=== PATIENT | male | born 1945 | race Caucasian/White ===

== ENCOUNTER 2017-10-10 08:03 | Inpatient (IN) | payer OTHER ==
[2017-09-12 11:12] VITALS: Ht 180.3 cm; Wt 90.1 kg
--- NOTE | 2017-09-12 11:35 | PAT Medication Instructions ---
Service Date Sep 12, 2017. Current Home Medication List Celecoxib (Celebrex), Unknown Dose PO UD Nutritional Supplements (Boost), 1 DOSE PO q3-4 days Omeprazole (Prilosec), 20 MG PO DAILY PRN for PRN Oxycodone/Acetaminophen 10MG/325MG (Percocet 10MG/325MG), 1 TAB PO UD PRN for Pain Simvastatin (Zocor), 40 MG PO QPM Medication Instructions For Your Scheduled Surgery - Ask your surgeon for instructions for: Celecoxib (Celebrex), Unknown Dose PO UD - Hold the following medications the morning of surgery: Nutritional Supplements (Boost), 1 DOSE PO q3-4 days - Take the following medications the morning of surgery with a sip of water: Omeprazole (Prilosec), 20 MG PO DAILY PRN for PRN (if needed) Oxycodone/Acetaminophen 10MG/325MG (Percocet 10MG/325MG), 1 TAB PO UD PRN for Pain (if needed, can be taken up to four hours before surgery) - Take the following medications as scheduled the night before surgery: Omeprazole (Prilosec), 20 MG PO DAILY PRN for PRN (if needed) Oxycodone/Acetaminophen 10MG/325MG (Percocet 10MG/325MG), 1 TAB PO UD PRN for Pain (if needed) Simvastatin (Zocor), 40 MG PO QPM If you have any questions please call us at [phone] or [phone] or [phone]
--- NOTE | 2017-09-12 12:45 | DIAGNOSTIC IMAGING REPORT ---
CHEST 2 VIEWS ROUTINE CLINICAL HISTORY: Preoperative chest COMPARISON STUDY: December 22, 2012 FINDINGS: The cardiac and mediastinal contours are normal. There is no evidence of focal pulmonary consolidation. There is no evidence of failure. No pleural effusions are visualized.[ There are minor areas of atelectasis/scarring at both lung bases. Advanced arthritic changes are present within the shoulders. IMPRESSION: No active disease in the chest. Electronically signed by: Anatoliy Salgado M.D. 09/12/2017 12:44 PM Dictated Date/Time: 09/12/2017 12:43 PM
[2017-09-12 13:43] LABS: BASO % 0.3 %; BASO ABS # 0.02 K/uL (0-0.2); EOS % 0.9 %; EOS ABS # 0.06 K/uL (0-0.5); HEMATOCRIT 40.5 % (42-52); HEMOGLOBIN 13.6 g/dL (14.0-18.0); IG# 0.01 K/uL (0.00-0.02); LYMPH ABS # 1.31 K/uL (1.2-3.4); MEAN CELL VOLUME 85.8 fL (80-100); MEAN CORPUSCULAR HEMOGLOBIN 28.8 pg (25-34); MEAN CORPUSCULAR HGB CONC 33.6 g/dl (32-36); MEAN PLATELET VOLUME 10.7 fL (7.4-10.4); MONO % 6.4 %; MONO ABS # 0.42 K/uL (0.11-0.59); NEUT % 72.2 %; NEUT ABS # 4.72 K/uL (1.4-6.5); PLATELET COUNT 217 K/uL (130-400); RED CELL DISTRIBUTION WIDTH CV 15.6 % (11.5-14.5); RED CELL DISTRIBUTION WIDTH SD 49.8 fL (36.4-46.3); WHITE BLOOD COUNT 6.54 K/uL (4.8-10.8)
[2017-09-12 13:56] LABS: PTT PATIENT 27.9 SECONDS (21.0-31.0)
[2017-09-12 14:23] LABS: HEMOGLOBIN A1C 5.5 % (4.5-5.6)
[2017-09-12 14:39] LABS: ALBUMIN 3.6 gm/dl (3.4-5.0); CALCIUM 8.9 mg/dl (8.5-10.1); CREATININE 0.69 mg/dl (0.60-1.40); POTASSIUM 4.7 mmol/L (3.5-5.1)
--- NOTE | 2017-10-01 14:16 | HISTORY & PHYSICAL EXAMINATION ---
DATE OF ADMISSION: 10/10/2017 CHIEF COMPLAINT: Left hip pain. HISTORY OF PRESENT ILLNESS: Mr. Rosas is a 72-year-old male with left hip pain. The patient rates his pain at 10/10. He has pain with his daily activities. He has limited standing and walking tolerance. Pain is worse with weightbearing. The patient ambulates with a cane. He takes chronic oxycodone 10/325. He does a home exercise program with little relief. The patient has failed conservative treatment and is scheduled for a left total hip arthroplasty. PAST MEDICAL HISTORY: Hypercholesterolemia. Denies heart disease, diabetes or DVT. PAST SURGICAL HISTORY: Right knee replacement and right hip replacement. SOCIAL HISTORY: The patient denies alcohol or tobacco use. He lives in a single story home. He lives alone and is retired. FAMILY HISTORY: Negative for DVT. MEDICATIONS: Omeprazole 20 mg daily, simvastatin 40 mg daily, and doxycycline 100 mg two capsules daily. ALLERGIES: None. REVIEW OF SYSTEMS: See HPI. Ten other systems reviewed, all negative. PHYSICAL EXAMINATION: VITAL SIGNS: Height 5 feet 11 inches, weight 200 pounds, and BMI 28. GENERAL: This is a well-developed and well-nourished male who is alert and oriented x3. Mood and affect are appropriate. HEENT: Normocephalic and atraumatic. Mucous membranes are moist and intact. NECK: Supple without lymphadenopathy. HEART: Regular rate and rhythm without murmurs, rubs or gallops. LUNGS: Clear to auscultation without wheezes or rhonchi. ABDOMEN: Soft and nontender. Bowel sounds are equal and active. EXTREMITIES: No ecchymosis, redness or warmth. The patient has decreased range of motion and pain in the groin. He is neurovascularly intact. He has +1 distal edema. He walks with an antalgic gait. X-RAY EXAMINATION: AP and lateral views show joint space narrowing and osteophyte formation. IMPRESSION: Degenerative joint disease, left hip. PLAN: The patient will be admitted for a left total hip arthroplasty. We will plan on aspirin for DVT prophylaxis. The patient would like to do outpatient PT upon discharge. [facility]
[~2017-10-10] VITALS: Ht 180.3 cm; Wt 90.1 kg
[2017-10-10] VITALS (10 sets, daily range): BP systolic 106–150; BP diastolic 58–93; PULSE 73–106; TEMP 36.4–36.8; O2SAT 95–100
[2017-10-10] MEDS: TRANEXAMIC ACID INJ 1,000 MG x 2 Bags IV SCH ×4 (06:00→06:30)
[~2017-10-10 08:03] MED LIST: ACETAMINOPHEN 500 MG TAB PO SCH; BUPIVACAINE 0.5 % 5 MG/1 ML PF 10ML VIAL ONE; CEFAZOLIN 2000MG IV PUSH 15 ML IV SCH; CeleBREX 200 MG CAP PO SCH; DEXAMETHASONE 4 MG TAB PO SCH; FAMOTIDINE 20 MG TAB PO SCH; GABAPENTIN 300 MG CAP PO SCH; LACTATED RINGER'S 1000ML 1,000 ML IV SCH; LACTATED RINGER'S 1000ML 500 ML IV SCH; METOCLOPRAMIDE HCL 10 MG TAB PO SCH; NUTR-7 PO; OXYC-106 PO; PRLSR20 PO; ROPIVACAINE 5MG/ML 30 ML 150 MG, BUPIVACAINE 0.5% MPF INJ 30 ML, EpINEphrine HCL INJ 0.... INFIL SCH; SIMV40TA2 PO
[2017-10-10] MEDS ORDERED: MIDAZOLAM HCL 1 MG/ML 2ML VIAL ONE (08:56)
[2017-10-10] MEDS ORDERED: POVIDONE-IODINE OP SOLN 30 ML BTL ONE (09:44)
[2017-10-10] MEDS ORDERED: BACITRACIN 50000 UNIT VIAL ONE (09:44)
[2017-10-10] MEDS ORDERED: ORTHO JOINT ANESTHETIC ONE (09:44)
--- NOTE | 2017-10-10 09:52 | History & Physical Bridge Note ---
H&P Re-Evaluation Bridge Note: I have examined the patient, reviewed the History & Physical and in the interval since the performance of the History & Physical I have noted the following changes of clinical significance: No changes noted
[2017-10-10] MEDS ORDERED: LIDOCAINE HCL 2% 2 ML VIAL (20MG/ML) ONE (11:11)
[2017-10-10] MEDS ORDERED: PROPOFOL IV EMULSION 10 MG/ML 20 ML VIAL IV ONE (11:11)
[2017-10-10] MEDS ORDERED: PHENYLEPHRINE 100MCG/ML 5ML SYR ONE (11:42)
--- NOTE | 2017-10-10 11:42 | [facility] Post Operative Brief Note ---
Immediate Operative Summary Operative Date Oct 10, 2017. Pre-Operative Diagnosis Left hip degenerative joint disease Post-Operative Diagnosis Left hip degenerative joint disease Procedure(s) Performed Left total knee arthroplasty, uncemented Surgeon Dr. Batista Net Development Manager Surgeon(s) Jhonathan Gongora PA-C Estimated Blood Loss 100cc Findings Consistent with Post-Op Diagnosis Specimens A: Left femoral head Anesthesia Type MAC Spinal Regional Complication(s) none Disposition Accompanied Pt To Recover: no Disposition: Recovery Room / PACU
--- NOTE | 2017-10-10 11:58 | OPERATIVE REPORT ---
DATE OF OPERATION: 10/10/2017 PREOPERATIVE DIAGNOSIS: Osteoarthritis, left hip. POSTOPERATIVE DIAGNOSIS: Osteoarthritis, left hip. PROCEDURE: Left Nicho total hip arthroplasty. SURGEON: Dr. Batista. MELON PACKER: PAIGE Lopez ANESTHESIA: Spinal. COMPLICATIONS: None. OPERATION AND FINDINGS: PROCEDURE: Following induction of adequate spinal anesthesia, the patient was placed in right lateral decubitus position and left Jess-Langenbeck incision was made. Subcutaneous tissue was sharply dissected. Electrocautery used for hemostasis. The fascia was incised throughout the length of the wound and a new scissor placed beneath the short external rotators. The pyriformis was tagged with #1 Vicryl. The short external rotators were divided from the posterior aspect of the femur using electrocautery. These were swept posteriorly. A T-capsulotomy incision was made and the hip was dislocated using a combination of flexion, adduction, and internal rotation. Exposure of the femoral neck with old-style Hohmann and a blunt Hohmann was carried out and a femoral rasp was utilized as a guide for making the appropriate level femoral neck cut. This bone fragment was removed and reserved on the back table. Next, attention was turned to the acetabulum where bone hook was used to retract the femur while the offset retractors were placed anterior and posteriorly. A double-angled Hohmann was placed in superior and anterior position exposing the acetabulum nicely. Acetabular labrum as well as posterior capsule elements were removed using a long knife and a long pickup. Fovea centralis was cleared of all soft tissue. Sequential reamings were carried up to a 52 and decision was made to proceed with impaction of a 52 trabecular metal cup. This was impacted and held using a single 35 mm bone screw. The acetabular liner was placed with 15 of elevated posterior wall in the superior and posterior position. Next, attention was turned to the femoral portion of the case where a Bovie and pickup was used to further clear short external rotators from their insertion on the femur. Box osteotome was used to gain access to the femoral canal and the T-handled rasp and a rattail rasp were used to further open and lateral the canal. Sequentially raspings were carried up to a 7 which gave good fit and fill of the proximal femur. A trial reduction was carried out and a 132 degree femoral neck component was chosen as the size to be used. A +0 x 36 mm ceramic femoral head was impacted into position, +0 head was utilized. The trial reduction was stable in all degrees of rotation with no [id number] impingement. The hip was dislocated. The trial components were removed and the final femoral stem, neck, and femoral head combination were assembled on the back table and impacted into position. Hip was relocated. Range of motion checked once again successful and the wound was irrigated. The pyriformis repaired to the greater trochanter using #1 Vicryl [id number] suture. A Hemovac drain was placed and the fascia was closed using #1 Vicryl, subcutaneous tissue was closed using 0 Dexon, and skin was closed with edward. Sterile dressing of Adaptic, 4 x 4's, ABDs, and foam tape was applied. The patient tolerated the procedure well. Due to the complex nature of the procedure, the entire surgery was performed with the operational assistance of PAIGE Lopez. The oral surgery assistant, under direct supervision, was involved in the actual performance of all aspects of the surgical procedure including hemostasis, tissue retraction and incision, instrument management, patient positioning, and wound closure. DISPOSITION: Recovery room, stable. I attest to the content of the Intraoperative Record and any orders documented therein. Any exception s are noted below.
[2017-10-10] MEDS ORDERED: KETOROLAC TROMETHAMINE 30 MG/ML VIAL IV. PRN (12:15)
[2017-10-10] MEDS ORDERED: HYDROmorphone INJ 2 MG/ML SYR/VIAL IV PRN (12:15)
[2017-10-10] MEDS ORDERED: ATROPINE SULFATE 0.1 MG/ML 5ML SYR IV PRN (12:15)
[2017-10-10] MEDS ORDERED: EpHEDrine SULFATE INJ 50 MG/ML AMP IV PRN (12:15)
[2017-10-10] MEDS ORDERED: ONDANSETRON INJ 2 MG/ML 2 ML VIAL IV PRN ×2 (12:15→12:30)
[2017-10-10] MEDS ORDERED: PHENYLEPHRINE 100MCG/ML 5ML SYR IV PRN (12:15)
[2017-10-10] MEDS ORDERED: BISACODYL 10 MG SUPP PR PRN (12:30)
[2017-10-10] MEDS ORDERED: MAGNESIUM HYDROXIDE SUSP 30 ML UDC PO PRN (12:30)
[2017-10-10] MEDS ORDERED: ALUMINUM/MAGNESIUM/SIMETH (MAALOX MAX) 30 ML UDC PO PRN (12:30)
--- NOTE | 2017-10-10 13:08 | DIAGNOSTIC IMAGING REPORT ---
AP PELVIS, CROSSTABLE LATERAL LEFT HIP History: Left total hip arthroplasty. Degenerative arthritis. Postop. FINDINGS: The patient is status post a left total hip arthroplasty. The hardware is intact. No fracture or dislocation. Prior right total arthroplasty. Left-sided surgical drains are are in place. IMPRESSION: Left total hip arthroplasty. No evidence for hardware complication. Electronically signed by: Mookie Curry M.D. 10/10/2017 1:07 PM Dictated Date/Time: 10/10/2017 1:06 PM
--- NOTE | 2017-10-10 14:09 | Anesthesiology Progress Note ---
Anesthesia Post Op Note Date & Time Oct 10, 2017 at 14:08 Vital Signs Pain Intensity: 0 Vital Signs Past 12 Hours Date Time Temp Pulse Resp B/P (MAP) Pulse Ox O2 Delivery O2 Flow Rate FiO2 10/10/17 13:48 73 18 116/69 (85) 100 10/10/17 13:27 100 Nasal Cannula 3.0 10/10/17 13:16 99 Nasal Cannula 3.0 10/10/17 13:13 36.4 75 16 106/63 (77) 99 3.0 10/10/17 13:00 36.3 67 18 103/66 100 Nasal Cannula 3 10/10/17 12:50 77 18 106/67 100 Oxymask 3 10/10/17 12:40 70 16 94/64 100 Oxymask 3 10/10/17 12:30 78 16 97/60 100 Oxymask 3 10/10/17 12:20 71 16 99/58 100 Oxymask 5 10/10/17 12:10 36.2 79 16 107/66 98 Oxymask 5 10/10/17 09:18 36.5 86 20 146/93 98 Room Air Notes Mental Status: alert / awake / arousable, participated in evaluation Pt Amnestic to Procedure: Yes Nausea / Vomiting: adequately controlled Pain: adequately controlled Airway Patency, RR, SpO2: stable & adequate BP & HR: stable & adequate Hydration State: stable & adequate Anesthetic Complications: no major complications apparent
[2017-10-10] MEDS: D5W AND 1/2NSS + 20MEQ KCL 1,000 ML IV SCH (16:13)
[2017-10-10] MEDS: ACETAMINOPHEN 500 MG TAB PO SCH ×2 (16:13→23:30)
[2017-10-10] MEDS: MoRPHine SULFATE 2 MG/ML CARP IV PRN ×2 (19:00→23:30)
[2017-10-10] MEDS: CEFAZOLIN IV 2,000 MG in SYRINGE 0 ML IV SCH (19:00)
[2017-10-10] MEDS: FERROUS GLUCONATE 324 MG TAB PO SCH (19:00)
[2017-10-10] MEDS: DOCUSATE SODIUM 100 MG CAP PO SCH (21:03)
[2017-10-10] MEDS: CeleBREX 200 MG CAP PO SCH (21:03)
[2017-10-10] MEDS: OXYCODONE HCL IR 5 MG TAB (IMMEDIATE RELEASE) PO PRN (21:03)
[2017-10-10] MEDS: SIMVASTATIN 40 MG TAB PO SCH (21:04)
[2017-10-10] MEDS: SENNA 8.6 MG TAB PO SCH (21:04)
[2017-10-10] MEDS: ASPIRIN 81 MG ECTAB PO SCH (21:06)
[2017-10-11] VITALS (7 sets, daily range): BP systolic 96–134; BP diastolic 58–84; PULSE 82–92; TEMP 36.4–37.1; O2SAT 94–100
[2017-10-11] MEDS: D5W AND 1/2NSS + 20MEQ KCL 1,000 ML IV SCH ×2 (02:05→12:19)
[2017-10-11] MEDS: CEFAZOLIN IV 2,000 MG in SYRINGE 0 ML IV SCH (03:05)
[2017-10-11] MEDS: ACETAMINOPHEN 500 MG TAB PO SCH ×3 (05:42→20:44)
[2017-10-11 06:14] LABS: BASO % 0.1 %; BASO ABS # 0.01 K/uL (0-0.2); HEMATOCRIT 29.2 % (42-52); HEMOGLOBIN 9.7 g/dL (14.0-18.0); IG# 0.03 K/uL (0.00-0.02); LYMPH % 7.5 %; LYMPH ABS # 0.71 K/uL (1.2-3.4); MEAN CELL VOLUME 84.6 fL (80-100); MEAN CORPUSCULAR HEMOGLOBIN 28.1 pg (25-34); MEAN CORPUSCULAR HGB CONC 33.2 g/dl (32-36); MEAN PLATELET VOLUME 9.4 fL (7.4-10.4); MONO % 7.1 %; MONO ABS # 0.67 K/uL (0.11-0.59); NEUT ABS # 8.02 K/uL (1.4-6.5); PLATELET COUNT 173 K/uL (130-400); RED CELL DISTRIBUTION WIDTH CV 15.3 % (11.5-14.5); RED CELL DISTRIBUTION WIDTH SD 47.2 fL (36.4-46.3); WHITE BLOOD COUNT 9.44 K/uL (4.8-10.8)
[2017-10-11 06:53] LABS: CALCIUM 7.8 mg/dl (8.5-10.1); CREATININE 0.81 mg/dl (0.60-1.40); POTASSIUM 4.8 mmol/L (3.5-5.1)
[2017-10-11] MEDS: OXYCODONE HCL IR 5 MG TAB (IMMEDIATE RELEASE) PO PRN ×4 (07:22→23:46)
[2017-10-11] MEDS: MULTIVITAMIN TAB PO SCH (08:36)
[2017-10-11] MEDS: DOCUSATE SODIUM 100 MG CAP PO SCH ×2 (08:36→20:43)
[2017-10-11] MEDS: ASPIRIN 81 MG ECTAB PO SCH ×2 (08:36→20:43)
[2017-10-11] MEDS: FERROUS GLUCONATE 324 MG TAB PO SCH ×3 (08:36→17:54)
[2017-10-11] MEDS: CeleBREX 200 MG CAP PO SCH ×2 (08:37→20:43)
[2017-10-11] MEDS: PANTOprazole SOD 40 MG TAB PO SCH (08:37)
--- NOTE | 2017-10-11 08:40 | Orthopedic Progress Note ---
Orthopedic Progress Note Date of Service Oct 11, 2017. Subjective Post OP Day: 1 Reports: feeling well, Denies: complaints Objective calves soft nontender, N/V intact, hip located, dressing C/D/I, A&O x3, toes mobile, hemovac drainage (150ml) Date Time Temp Pulse Resp B/P (MAP) Pulse Ox O2 Delivery O2 Flow Rate FiO2 10/11/17 07:58 99 Room Air 10/11/17 07:54 36.4 82 20 134/84 (101) 99 Room Air 10/11/17 07:31 Room Air 10/11/17 03:12 36.6 83 16 105/64 (78) 95 Room Air 10/11/17 00:10 100 Room Air 3.0 10/10/17 23:00 36.8 87 18 106/58 (74) 95 Room Air 10/10/17 19:01 36.6 106 18 131/79 (96) 99 Room Air 10/10/17 16:32 36.5 90 18 150/82 (104) 96 Room Air 10/10/17 16:17 36.6 93 16 124/80 (95) 98 Room Air 10/10/17 15:43 36.6 87 18 120/69 (86) 98 Nasal Cannula 3.0 10/10/17 15:15 Room Air 10/10/17 14:15 92 18 133/87 (102) 100 10/10/17 13:48 73 18 116/69 (85) 100 10/10/17 13:27 100 Nasal Cannula 3.0 10/10/17 13:16 99 Nasal Cannula 3.0 10/10/17 13:13 36.4 75 16 106/63 (77) 99 3.0 10/10/17 13:00 36.3 67 18 103/66 100 Nasal Cannula 3 10/10/17 12:50 77 18 106/67 100 Oxymask 3 10/10/17 12:40 70 16 94/64 100 Oxymask 3 10/10/17 12:30 78 16 97/60 100 Oxymask 3 10/10/17 12:20 71 16 99/58 100 Oxymask 5 10/10/17 12:10 36.2 79 16 107/66 98 Oxymask 5 10/10/17 09:18 36.5 86 20 146/93 98 Room Air Laboratory Results 24 Hours: Test 10/11/17 05:38 White Blood Count 9.44 K/uL Red Blood Count 3.45 M/uL Hemoglobin 9.7 g/dL Hematocrit 29.2 % Mean Corpuscular Volume 84.6 fL Mean Corpuscular Hemoglobin 28.1 pg Mean Corpuscular Hemoglobin Concent 33.2 g/dl Platelet Count 173 K/uL Mean Platelet Volume 9.4 fL Neutrophils (%) (Auto) 85.0 % Lymphocytes (%) (Auto) 7.5 % Monocytes (%) (Auto) 7.1 % Eosinophils (%) (Auto) 0.0 % Basophils (%) (Auto) 0.1 % Neutrophils # (Auto) 8.02 K/uL Lymphocytes # (Auto) 0.71 K/uL Monocytes # (Auto) 0.67 K/uL Eosinophils # (Auto) 0.00 K/uL Basophils # (Auto) 0.01 K/uL Assessment & Plan Assessment: POD 1 s/p Left DUNIA Plan: PT/OT Planning for OPPT Inhouse Planning Pain Management: Celebrex, Ultram, Morphine, PO Tylenol, Oxy IR DVT Prophylaxis: TEDs, SCDs, ASA Discharge Planning Discharge Planning: home with oppt
--- NOTE | 2017-10-11 08:54 | Discharge Instructions ---
Discharge Instructions Date of Service Oct 11, 2017. Admission Reason for Admission: Left Hip Osteoarthritis Discharge Discharge Diagnosis / Problem: Left Hip Osteoarthritis Discharge Goals Goal(s): Decrease discomfort, Improve function Activity Recommendations Activity Limitations: per Instructions/Follow-up section Weightbearing Status: Left weightbearing (as tolerated) . Instructions / Follow-Up Instructions / Follow-Up ACTIVITY RECOMMENDATIONS: SELF CARE INSTRUCTIONS AFTER TOTAL HIP REPLACEMENT Until the incision and soft tissues around your hip have healed, there is a possibility that the hip prosthesis could dislocate. A. Observe the following precautions to prevent dislocation: 1. Don't bend your hip greater than 90 degrees. 2. Avoid crossing your legs or ankles while standing or lying. 3. Sit with your feet placed 6 inches apart. 4. When sitting, keep your knees below your hips. Sit on a firm surface, avoid deep, soft chairs and couches. Use an elevated toilet seat in the bathroom. 5. Don't bend over at the waist. Use a long handled shoehorn and a sock aid to help you put on your shoes and socks. A classroom teacher can help you fruit picker objects that are too high or too low to reach. 6. Keep car riding to a minimum for at least one month after surgery. B. Your balance may be shaky for a while. Use crutches or a walker until directed by your doctor. C. Use hand rails when walking on stairs. D. Wear low heeled shoes with non-slip soles. E. Be sure that your floors are free of things that could trip you - throw rugs , electrical cords, small objects. Avoid wet and waxed floors, especially with crutches and canes. F. Try to walk several times a day with rest periods between. G. Continue with all the exercises taught to you in the hospital. Again, make walking a part of your daily routine. SPECIAL CARE INSTRUCTIONS: VERY IMPORTANT TO READ AND REVIEW A. You may still be at risk for phlebitis and blood clots. 1. Wear surgical stockings (SWETA hose) for 2 weeks after surgery to improve circulation and reduce swelling. 2. Take Aspirin 81mg twice daily for 4 weeks or as directed by your doctor. This is your blood thinner. 3. High risk patients may be prescribed a stronger blood thinner if necessary. 4. If you are on Coumadin normally, your family doctor/ceo should monitor your blood work. Expect a phone call the day of or the day after bloodwork is drawn to adjust your dosage. B. You must take antibiotics before having dental work, bladder, bowel and other surgery. Your doctor will provide you with a permanent card to carry describing precautions. C. Call [facility] if you have a fever, redness or swelling around the incision, cloudy drainage from incision, or sudden increase in pain in your hip, not relieved by your regular pain medication. D. Please call the office at if you have any concerns or questions about your operation or recovery. * YOU MAY SHOWER, NO TUB BATHS UNTIL CLEARED BY YOUR DOCTOR. * WEAR SWETA HOSE 20 HOURS PER DAY FOR 2 WEEKS. * YOU SHOULD USE A WALKER OR CRUTCHES FOR 2-4 WEEKS. THIS WILL HELP PREVENT STRAIN ON YOUR HIP MUSCLE AND ALLOW IT TO HEAL PROPERLY. YOU MAY WEAN TO A CANE TOLERATED. * MOST PATIENTS WILL HAVE HOME NURSING FOR THERAPY. IF YOU DECIDE TO DO OUTPATIENT PHYSICAL THERAPY, PLEASE SCHEDULE THIS 3 TIMES PER WEEK. * Zip Skin Closure You have a Zipline Closure System. As noted below, this keeps your incision closed. Change the dressing daily. Keep the wound covered with a dressing as it has the potential to snag on your clothing. The Zipline will remain on for a total of 2 weeks. Do not remove it! You can shower with this on. No shower pressure on the wound. Do not soak it. No tub baths, swimming pools, or hot tubs until cleared by your Doctor. You will be given instructions by nursing staff at the time of discharge to care for your Zip Closure System. This devices uses plastic straps to keep your incision closed and protected throughout your recovery. If you have any questions please refer to these instructions first. [phone]. FOLLOW UP VISIT: If appointment is not already scheduled: Please call [facility] to make a follow-up appointment for 2 weeks after your surgery at . Current Hospital Diet Patient's current hospital diet: Regular Diet Discharge Diet Recommended Diet: Regular Diet Procedures Procedures Performed: Left total knee arthroplasty, uncemented Pending Studies Studies pending at discharge: no Laboratory Results Hemoglobin A1c Test 09/12/17 11:50 Range/Units Estimated Average Glucose 111 mg/dl Hemoglobin A1c 5.5 4.5-5.6 % Medical Emergencies . Who to Call and When: Medical Emergencies: If at any time you feel your situation is an emergency, please call 911 immediately. . Non-Emergent Contact Non-Emergency issues call your: Surgeon Call Non-Emergent contact if: temperature is above 101.5, your pain is not controlled, your pain is worsening, wound has increased drainage, wound has increased redness . "Provider Documentation" section prepared by Jhonathan Gongora. . [place] Drug Monitoring Program Search Results: patient reviewed within database, see additional documentation Drug Monitoring Findings: Pt receiving narcotics from Dr Irwin Arnold in [facility] on a semi regular basis. Last rx filled 08/30/17 for Percocet for 25 days. Pt will need to resume contract with this doctor after post operative period is over
[2017-10-11] MEDS: TRAMADOL HCL 50 MG TAB PO PRN ×3 (09:27→19:17)
--- NOTE | 2017-10-11 10:32 | Clinical Documentation Query ---
CLINICAL DOCUMENTATION QUERY Dr. PERALTA, In your clinical opinion is this patient being managed for: ( ) Acute blood loss anemia ( ) Not Agree ( ) Other explanation of clinical findings (Please Explain) ( ) Unable to determine (Please Define) ( ) Need to Discuss The medical record reflects the following clinical findings, treatment, and risk factors. Clinical Indicators: 72 yo male presenting with L hip DJD for L DUNIA. EBL 100 cc with additional hemovac drainage of 270 cc thus far Treatment: IV fluids, monitor CBC Risk Factors: expected surgical blood loss Please clarify and document your clinical opinion in the progress notes and discharge summary. Terms such as "probable", "suspected", "likely", "questionable", "possible", or "still to be ruled out" are acceptable. IF IN AGREEMENT, YOU MUST DOCUMENT ABOVE DIAGNOSTIC STATEMENT IN DAILY PROGRESS NOTES AND DISCHARGE SUMMARY. This document is not part of the patient's record. Thank You, Letty Willis RN [phone]
[2017-10-11] MEDS: SENNA 8.6 MG TAB PO SCH (20:43)
[2017-10-11] MEDS: SIMVASTATIN 40 MG TAB PO SCH (20:44)
[2017-10-12] MEDS: ACETAMINOPHEN 500 MG TAB PO SCH ×2 (05:33→13:36)
[2017-10-12] MEDS: OXYCODONE HCL IR 5 MG TAB (IMMEDIATE RELEASE) PO PRN ×2 (05:35→12:38)
[2017-10-12 07:30] VITALS: BP 106/62; PULSE 74; TEMP 36.4; O2SAT 98
[2017-10-12] MEDS: ASPIRIN 81 MG ECTAB PO SCH (08:32)
[2017-10-12] MEDS: DOCUSATE SODIUM 100 MG CAP PO SCH (08:33)
[2017-10-12] MEDS: PANTOprazole SOD 40 MG TAB PO SCH (08:33)
[2017-10-12] MEDS: CeleBREX 200 MG CAP PO SCH (08:33)
[2017-10-12] MEDS: FERROUS GLUCONATE 324 MG TAB PO SCH ×2 (08:33→12:37)
[2017-10-12] MEDS: MULTIVITAMIN TAB PO SCH (08:33)
--- NOTE | 2017-10-12 08:37 | Orthopedic Progress Note ---
Orthopedic Progress Note Date of Service Oct 12, 2017. Subjective Post OP Day: 2 Reports: feeling well, Denies: chest pain, SOB, nausea / vomiting, light headedness, calf pain Objective calves soft nontender, N/V intact, hip located, capillary refill less than 2 sec., dressing C/D/I (ZIPLINE), A&O x3, toes mobile Date Time Temp Pulse Resp B/P (MAP) Pulse Ox O2 Delivery O2 Flow Rate FiO2 10/12/17 07:30 36.4 74 19 106/62 (77) 98 Room Air 10/12/17 07:30 Room Air 10/11/17 23:31 37.1 87 16 96/58 (71) 94 Room Air 10/11/17 19:21 Room Air 10/11/17 16:40 Room Air 10/11/17 15:05 36.7 92 16 120/67 (84) 97 Room Air 10/11/17 12:14 36.5 88 18 120/76 (91) 98 Room Air Assessment & Plan Assessment: POD 2 s/p Left DUNIA Plan: PT/OT Planning for OPPT- DC HOME TODAY PAIN MANAGEMENT- ANDRIY, CELEBREX, TYLENOL DVT PROPH- ASA 81MG BID Inhouse Planning Pain Management: Celebrex, Ultram, Morphine, PO Tylenol, Oxy IR DVT Prophylaxis: TEDs, SCDs, ASA Discharge Planning Discharge Planning: home with oppt
[2017-10-12] MEDS ORDERED: ONDA-170 PO (08:39)
[2017-10-12] MEDS ORDERED: RXC5 PO (08:39)
[2017-10-12] MEDS ORDERED: SENN-61 PO (08:39)
[2017-10-12] MEDS ORDERED: ASPEC81 PO (08:39)
[2017-10-12] MEDS ORDERED: CLB200 PO (08:39)
[2017-10-12] MEDS ORDERED: ACET-24 PO (08:39)
[2017-10-12 10:18] VITALS: BP 106/62; PULSE 74; TEMP 36.4; O2SAT 98
== END 2017-10-12 13:45 | disposition home or self-care (01) | DRG 470 ==
LOC: C.ACU 08:03 → C.3E 09:46 → ENRESERV 12:41
PROC: 0SRB0JA Replacement of Left Hip Joint with Synthetic Substitute, Uncemented, Open Approach (ICD-10-PCS; principal; 2017-10-10 10:45)
DX: M16.12 Unilateral primary osteoarthritis, left hip (principal); E78.00 Pure hypercholesterolemia, unspecified; K21.9 Gastro-esophageal reflux disease without esophagitis; Z79.899 Other long term (current) drug therapy; Z79.891 Long term (current) use of opiate analgesic; Z96.641 Presence of right artificial hip joint; Z96.651 Presence of right artificial knee joint

== ENCOUNTER 2020-04-19 12:44 | Inpatient (IN) ==
[2020-04-19] MEDS ORDERED: ALUMINUM/MAGNESIUM SUSP 30 ML UDC PO PRN (14:17)
[2020-04-19] MEDS ORDERED: METOCLOPRAMIDE HCL INJ 5 MG/ML 2 ML VIAL IV PRN (14:17)
[2020-04-19] MEDS ORDERED: ZOLPIDEM TARTRATE 5 MG TAB PO PRN (14:17)
[2020-04-19] MEDS ORDERED: ONDANSETRON INJ 2 MG/ML 2 ML VIAL IV PRN (14:17)
[2020-04-19] MEDS ORDERED: MAGNESIUM HYDROXIDE SUSP 30 ML UDC PO PRN (14:17)
--- NOTE | 2020-04-19 15:25 | History and Physical Report ---
DATE OF ADMISSION: 04/19/2020 CHIEF COMPLAINT: Draining right hip wound. HISTORY OF PRESENT ILLNESS: The patient is a 74-year-old gentleman presented to the office on 04/19/2020 for evaluation of a draining right lateral hip wound. He is status post previous right total hip arthroplasty by Dr. Batista approximately 5 years ago. He states he has had drainage from this hip now for several months and finally presents for evaluation. On exam, he had gross purulence from the lateral hip. He has x-ray changes consistent with osteolysis about the femoral stem concerning for deep infection. The patient has been admitted to the hospital for surgical excisional arthroplasty, implantation of antibiotic spacer, IV antibiotics, and eventually likely the need for surgical reimplantation. PAST MEDICAL HISTORY: Hypertension, hyperlipidemia, aortic insufficiency. PAST SURGICAL HISTORY: Right hip replacement, left hip replacement, right knee replacement, cataract surgery. MEDICATIONS: None. ALLERGIES: No known drug allergies. SOCIAL HISTORY: He lives alone by himself. Otherwise, noncontributory. PHYSICAL EXAMINATION: GENERAL: Well-nourished, well-developed elderly male who appears his stated age. HEENT: Normocephalic, atraumatic, extraocular movements intact. Oropharynx pink and moist. NECK: Supple without adenopathy. LUNGS: Clear to auscultation bilaterally. HEART: Regular rate and rhythm. ABDOMEN: Soft, nontender, nondistended. EXTREMITIES: The upper extremities are within normal limits. The right lateral hip incision demonstrates evidence of two sinus tracts. He had a dressing in place today which was saturated with gross purulence. His hip is minimally irritable to passive range of motion. X-RAYS: X-rays of the hip were reviewed and is concerning for osteolysis about the proximal femoral stem. 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 PLAN: Above discussed with the patient. We are going to admit him to the hospital. We will get a preoperative medical clearance. Plan for surgical excisional arthroplasty with implantation of antibiotic spacer, 6 weeks or more of IV antibiotics and eventually the patient will return to the OR for reimplantation as indicated.
--- OUTSIDE RECORDS SUMMARY | 2020-04-19 18:05 | External Medical Summary | Continuity of Care Document ---
:[address], Provider Address Unavailable Unavailable , Care Team Providers Name Role Phone Shawanda Boyle [email or web address] PCP, UNKNOWN Unavailable Unavailable Problems Active medical history not documented Allergies and Adverse Reactions Allergy history not documented Medications Medications not documented Procedures Procedures not documented Immunizations Immunizations not documented Plan of Treatment Planned Observations Planned Goals not documented Results No Known Results Results not documented
[2020-04-19] MEDS: SODIUM CHLORIDE 0.9% 1000ML 1,000 ML IV SCH (19:06)
[2020-04-19 19:21] LABS: Basophils # (auto) 0.01 K/uL (0-0.2); Basophils % (auto) 0.2 %; Eosinophils # (auto) 0.08 K/uL (0-0.5); Eosinophils % (auto) 1.4 %; Hematocrit (blood only) 41.5 % (42-52); Hemoglobin 13.4 g/dL (14.0-18.0); Immature Granulocytes # (auto) 0.01 K/uL (0.00-0.02); Immature Granulocytes % (auto) 0.2 %; Lymphocytes # (auto) 1.16 K/uL (1.2-3.4); Lymphocytes % (auto) 20.1 %; Mean Corpuscular Hemoglobin 27.5 pg (25-34); Mean Corpuscular Hgb Conc 32.3 g/dL (32-36); Mean Platelet Volume 9.9 fL (7.4-10.4); Monocytes # (auto) 0.34 K/uL (0.11-0.59); Monocytes % (auto) 5.9 %; Neutrophils # (auto) 4.17 K/uL (1.4-6.5); Neutrophils % (auto) 72.2 %; Platelet Count 236 K/uL (130-400); RDW Coefficient of Variation 15.8 % (11.5-14.5); Red Blood Count 4.88 M/uL (4.7-6.1); White Blood Count 5.77 K/uL (4.8-10.8)
[2020-04-19] MEDS: OXYCODONE HCL IR 5 MG TAB (IMMEDIATE RELEASE) PO SCH (19:31)
[2020-04-19 19:33] LABS: Partial Thromboplastin Ratio 1.1; Partial Thromboplastin Time 30.1 Seconds (21.0-31.0); Prothrombin Time 10.7 Seconds (9.0-12.0)
--- NOTE | 2020-04-19 19:38 | XRay Report ---
TWO VIEW CHEST CLINICAL HISTORY: Preoperative examination. FINDINGS: PA and lateral chest radiographs are compared to study dated 09/12/2017. The cardiomediastin al silhouette is unremarkable noting atherosclerotic calcification of the thoracic aorta. There is ch ronic elevation of the right hemidiaphragm with bibasilar scarring/atelectasis. Chronic interstitial thickening is similar to previous. No airspace consolidation or pleural effusion is identified. There is no pneumothorax. The skeletal structures are osteopenic. The bony thorax appears intact. Advanced arthritic change and deformity is present in both shoulders. Degenerative change is also seen in the thoracic spine. IMPRESSION: Chronic parenchymal changes as above with no active disease in the chest. ACT 112: Negative or not required by law. Electronically signed by: Dandy Morales M.D. 04/19/2020 7:36 PM
[2020-04-19 19:41] LABS: BUN Creatinine Ratio 12.5 (10-20); C Reactive Protein 3.14 mg/dl (0-0.29); Calcium 9.4 mg/dl (8.5-10.1); Est GFR (African American) 106.9; Est GFR (Non-African American) 92.2; Potassium 3.9 mmol/L (3.5-5.1)
[2020-04-19 20:01] LABS: Appearance Urine Clear (Clear); Bilirubin Urine Negative (Negative); Blood Urine Negative (Negative); Color Urine Yellow; Glucose Urine UA Negative (Negative); Ketones Urine Negative (Negative); Leukocyte Esterase Urine Negative (Negative); Nitrite Urine Negative (Negative); Protein Urine Negative (Negative); Urobilinogen Urine Negative (Negative)
[2020-04-19] MEDS: DOCUSATE SODIUM 100 MG CAP PO SCH (21:09)
[2020-04-19] MEDS ORDERED: HydrALAZINE HCL 20 MG/ML VIAL IV PRN (21:55)
--- NOTE | 2020-04-19 21:55 | Hospitalist Consultation ---
Date of Consultation April 19, 2020 Assessment & Plan (1) Infection of right prosthetic hip joint: Defer antibiotics post surgical wound collection. Blood cultures. He is medically stable for surgery at this time. Revised cardiac risk index 0. 3.9% 30-day risk of , MS, or cardiac arrest. (2) LBBB (left bundle branch block): Similar to prior EKG. No further workup required for this. (3) Hyperlipidemia: Notable history of this. Follw up with PCP after discharge. (4) DVT prophylaxis: SCDs. Chemical prophylaxis deferred to primary orthopedic team. History of Present Illness Reason for Consultation: Infected right hip prosthesis Attending Physician: Rene Arias DO History of Present Illness Ghulam Rosas is a 74 year old male who presents as a direct admission under Dr Arias for right hip prosthesis infection. Initial surgery was performed [address] Batista. In addition he has a right TKA performed by Dr Fofana with subsequent revision surgery prior to this. He has not had a PCP for the last 2 years as he has been unhappy about the outcomes of his surgeries and does not take any medications at the present time Denies any chest pain or shortness of breath on exertion. Able to walk up a flight of stairs with stopping or symptoms. Allergies Allergy/AdvReac Type Severity Reaction Status Date / Time No Known Allergies Allergy Unverified 09/12/17 11:08 Home Medications Home Medications Medication Instructions Recorded Confirmed Type Simvastatin (Zocor) 40 mg PO QPM #0 tab 01/07/13 History Patient History Medical History Hyperlipidemia Surgical History History of cataract surgery History of total hip replacement History of total knee replacement Social History Smoking Status: Never smoker Hx Alcohol Use: No Hx Substance Use: No Communication Ability: Effective Beliefs That Will Affect Care: None Current Living Situation: Alone Other Information That Helps Us Care for You: No Feels Safe at Home: Yes Safety Concerns: Feels Safe At This Time Assistive Devices: None Review of Systems Review of Systems: All systems reviewed & are unremarkable except as noted in HPI & below Physical Exam Constitutional: WD/WN, vitals as above Eyes: + anicteric sclerae; normal pupil size ENMT: external ear and nose normal, oropharynx normal Neck: trachea midline, no thyromegaly Respiratory: normal respiratory effort, lungs clear to auscultation Cardiovascular: Rate/Rhythm: regular rate and regular rhythm Heart Sounds: no murmur Extremities: normal capillary refill and + pedal edema (trace b/l ankles); no calf tenderness Gastrointestinal (Abdomen): normal bowel sounds, soft, nontender, no hepatosplenomegaly Skin: Right hip swelling. Drainage from lateral right hip incision without significant surrounding cellulitis. Neurologic: moves all extremities and awake; not confused NV intact distal to right hip Psychiatric: A+Ox3, euthymic affect Results & Data Results & Data ([facility]) Vital Signs (Past 12 Hours) Vital Signs Temp Pulse Resp BP Pulse Ox 04/19/20 18:38 96 H 20 174/99 H 95 04/19/20 18:32 36.8 C 96 H 20 174/99 H 95 Diagnostic Findings TWO VIEW CHEST IMPRESSION: Chronic parenchymal changes as above with no active disease in the chest. ECG Indication: other (Pre-op) Rate (beats per minute): 85 Rhythm: normal sinus Findings: + LBBB and + PVC Comparison ECG Date: from (12 September 2017) Change: no significant change (PVC present) PG Care Time/CCT Total # of Minutes Spent Total Time Spent with Patient: Total time spent is greater than 50% in coordination of care (as documented) at patient's floor/unit and/or counseling patient: Coding Level of Care Code 27640 Inpt Consult Level 3 Diagnoses Infection of right prosthetic hip joint T84.51XA LBBB (left bundle branch block) I44.7 Hyperlipidemia E78.5 DVT prophylaxis Z29.9
[2020-04-20] MEDS: OXYCODONE HCL IR 5 MG TAB (IMMEDIATE RELEASE) PO SCH ×4 (00:05→17:22)
[2020-04-20] MEDS: SODIUM CHLORIDE 0.9% 1000ML 1,000 ML IV SCH ×2 (05:37→17:22)
--- NOTE | 2020-04-20 09:44 | Orthopedic Progress Note ---
Date of Service April 20, 2020 Assessment & Plan (1) Infection of right prosthetic hip joint: Periprosthetic hip infection with unclear etiology. Principal surgery performed in January [address] Batista. The patient's postoperative period was uncomplicated. The patient denies any recent illnesses or infections. Denies any pain or fevers. Admits to draining of the right hip x2 months, was seen 1 day previously in the office by UDAVIS GIBSON and admitted for further treatment of his right hip periprosthetic joint infection. -Due to implant and OR availability, planning on OR on 04/21/2020. -N.p.o. after midnight -Hold anticoagulation -Medical consultation for clearance and perioperative comanagement -Hold IV antibiotics for intraoperative cultures Admission and Anticipated Discharge Date Admission Date: April 19, 2020 Subjective Patient seen sitting up in bed, comfortable, no acute issues, denies fevers, chills, nausea, vomiting, shortness of breath or chest pain. Review of Systems Review of Systems: All systems reviewed & are unremarkable except as noted in HPI & below Constitutional: as per Subjective / HPI Physical Exam Physical Exam: RLE NVSI +EHL/FHL/TA/GS SILT grossly, +2 DP pulse, compartments soft NT, Patient reports right posterior lateral incision with 2 draining sinus tracts middle one third incision distal one third incision. Purulent drainage. Mild erythema and edema. Constitutional: WD/WN, vitals as above Results & Data ([place]) Vital Signs (Past 12 Hours) Vital Signs Temp Pulse Resp BP Pulse Ox 04/19/20 23:04 37.0 C 85 16 137/85 95 Laboratory Results 04/19/20 04/19/20 04/19/20 Range/Units 19:55 18:50 18:50 WBC 5.77 (4.8-10.8) K/uL RBC 4.88 (4.7-6.1) M/uL Hgb 13.4 L (14.0-18.0) g/dL Hct 41.5 L (42-52) % MCV 85.0 (80-100) fL MCH 27.5 (25-34) pg MCHC 32.3 (32-36) g/dL RDW Std Deviation 49.0 H (36.4-46.3) fL RDW Coeff of Lori 15.8 H (11.5-14.5) % Plt Count 236 (130-400) K/uL MPV 9.9 (7.4-10.4) fL Immature Gran % (Auto) 0.2 % Neut % (Auto) 72.2 % Lymph % (Auto) 20.1 % Garrett % (Auto) 5.9 % Eos % (Auto) 1.4 % Baso % (Auto) 0.2 % Neut # (Auto) 4.17 (1.4-6.5) K/uL Lymph # (Auto) 1.16 L (1.2-3.4) K/uL Garrett # (Auto) 0.34 (0.11-0.59) K/uL Eos # (Auto) 0.08 (0-0.5) K/uL Baso # (Auto) 0.01 (0-0.2) K/uL Immature Gran # (Auto) 0.01 (0.00-0.02) K/uL ESR 62 H (0-14) mm/hr PT (9.0-12.0) Seconds INR (0.9-1.1) APTT (21.0-31.0) Seconds PTT Ratio Sodium (136-145) mmol/L Potassium (3.5-5.1) mmol/L Chloride (98-107) mmol/L Carbon Dioxide (21-32) mmol/L Anion Gap (3-11) BUN (7-18) mg/dl Creatinine (0.6-1.4) mg/dl Est Cr Clr Drug Dosing ml/min Est GFR ( Amer) Est GFR (Non-Af Amer) BUN/Creatinine Ratio (10-20) Glucose (70-99) mg/dl Calcium (8.5-10.1) mg/dl C-Reactive Protein (0-0.29) mg/dl Urine Color Yellow Urine Appearance Clear (Clear) Urine pH 7.0 (4.5-7.5) Ur Specific [place] 1.010 (1.000-1.030) Urine Protein Negative (Negative) Urine Glucose (UA) Negative (Negative) Urine Ketones Negative (Negative) Urine Blood Negative (Negative) Urine Nitrite Negative (Negative) Urine Bilirubin Negative (Negative) Urine Urobilinogen Negative (Negative) Ur Leukocyte Esterase Negative (Negative) 04/19/20 04/19/20 Range/Units 18:49 18:49 WBC (4.8-10.8) K/uL RBC (4.7-6.1) M/uL Hgb (14.0-18.0) g/dL Hct (42-52) % MCV (80-100) fL MCH (25-34) pg MCHC (32-36) g/dL RDW Std Deviation (36.4-46.3) fL RDW Coeff of Lori (11.5-14.5) % Plt Count (130-400) K/uL MPV (7.4-10.4) fL Immature Gran % (Auto) % Neut % (Auto) % Lymph % (Auto) % Garrett % (Auto) % Eos % (Auto) % Baso % (Auto) % Neut # (Auto) (1.4-6.5) K/uL Lymph # (Auto) (1.2-3.4) K/uL Garrett # (Auto) (0.11-0.59) K/uL Eos # (Auto) (0-0.5) K/uL Baso # (Auto) (0-0.2) K/uL Immature Gran # (Auto) (0.00-0.02) K/uL ESR (0-14) mm/hr PT 10.7 (9.0-12.0) Seconds INR 1.0 (0.9-1.1) APTT 30.1 (21.0-31.0) Seconds PTT Ratio 1.1 Sodium 136 (136-145) mmol/L Potassium 3.9 (3.5-5.1) mmol/L Chloride 104 (98-107) mmol/L Carbon Dioxide 25 (21-32) mmol/L Anion Gap 8.0 (3-11) BUN 9 (7-18) mg/dl Creatinine 0.69 (0.6-1.4) mg/dl Est Cr Clr Drug Dosing 97.0 ml/min Est GFR ( Amer) 106.9 Est GFR (Non-Af Amer) 92.2 BUN/Creatinine Ratio 12.5 (10-20) Glucose 98 (70-99) mg/dl Calcium 9.4 (8.5-10.1) mg/dl C-Reactive Protein 3.14 H (0-0.29) mg/dl Urine Color Urine Appearance (Clear) Urine pH (4.5-7.5) Ur Specific [place] (1.000-1.030) Urine Protein (Negative) Urine Glucose (UA) (Negative) Urine Ketones (Negative) Urine Blood (Negative) Urine Nitrite (Negative) Urine Bilirubin (Negative) Urine Urobilinogen (Negative) Ur Leukocyte Esterase (Negative)
[2020-04-20] MEDS: DOCUSATE SODIUM 100 MG CAP PO SCH ×2 (10:08→20:31)
[2020-04-20] MEDS: PANTOprazole 40 MG TAB PO SCH (10:08)
--- NOTE | 2020-04-20 14:46 | Hospitalist Progress Note ---
Date of Service April 20, 2020 Assessment & Plan (1) Infection of right prosthetic hip joint: Defer antibiotics post surgical wound collection. Blood cultures pending He is medically stable for surgery at this time - reports good exercise tolerance, able to ambulate up stairs and/or across a parking lot without sob. No cardiac history or any history of chest pain. RCRI is 3.9%. Patient is optimized for surgery. Surgery planned for tomorrow (2) LBBB (left bundle branch block): Similar to prior EKG. No further workup required for this. (3) Hyperlipidemia: Notable history of this. Follow up with PCP after discharge. Was on statin in the past but has not taken over the last two years (4) DVT prophylaxis: SCDs. Chemical prophylaxis deferred to primary orthopedic team. Admission and Anticipated Discharge Date Admission Date: April 19, 2020 Subjective Mr. Rosas is feeling well. Continues to have some drainage at wound site on right hip ROS Constitutional: no chills, aches, sweats or fever Respiratory: no sob,cough, sputum, or wheezing Cardiac: no chest pain, palpitations, edema, orthopnea or lightheadedness GI: no abdominal pain, nausea, vomiting, diarrhea or constipation : no dysuria or hesitancy Extremities: no joint pain or weakness Skin: no rash All other systems reviewed and negative Physical Exam Physical Exam: General: no distress Eyes: normal inspection, PERLL Respiratory: chest non tender, clear to auscultation, normal breath sounds, no respiratory distress, no accessory muscle use Cardiac: regular rate and rhythm, no rub or gallop, no murmur, no edema, no jvd GI/: active bowel sounds, no abd pain or tenderness, soft, non distended Extremities: normal range of motion, normal strength, non tender Neuro/Psych: alert and oriented x 3, normal mood and affect Skin: normal color, dry, right hip scar with 2 draining sinus tracts PG Care Time/CCT Total # of Minutes Spent Total Time Spent with Patient: Total time spent is greater than 50% in coordination of care (as documented) at patient's floor/unit and/or counseling patient: Coding Level of Care Code 71180 Subseq Hosp Care Lvl 2 Diagnoses Infection of right prosthetic hip joint T84.51XA LBBB (left bundle branch block) I44.7 Hyperlipidemia E78.5 DVT prophylaxis Z29.9
--- NOTE | 2020-04-20 16:08 | Electrocardiogram Report ---
Test Reason : Blood Pressure : / mmHG Vent. Rate : 085 BPM Atrial Rate : 085 BPM P-R Int : 182 ms QRS Dur : 124 ms QT Int : 400 ms P-R-T Axes : 074 -21 088 degrees QTc Int : 476 ms Sinus rhythm with occasional Premature ventricular complexes Left bundle branch block Abnormal ECG When compared with ECG of 12-SEP-2017 11:55, Premature ventricular complexes are now Present Confirmed by Han Oseguera ([id number]) on 04/20/2020 4:08:14 PM Referred By: Rene Arias Confirmed By:Han Oseguera
--- NOTE | 2020-04-20 18:09 | Anesthesiology Consultation ---
Date of Service April 20, 2020 Assessment & Plan (1) Encounter for pre-operative examination: Chart Review Chart Review: Acceptable Risk for Surgery and Patient NOT seen in Pre Admission Testing Covid 19 prescreening test 04/20/2020 was negative. Consults Requested none Internal medicine following patient. Per medicine service: "He is medically stable for surgery at this time. LBBB similar to prior ECG. No further workup required for this." History Surgery Operation Date: 04/21/20 08:15 Proposed Procedures p Explant Right Total Hip Incision and Drainage and Placement Antibiotic Spacer - Rene Arias DO Height/Weight Height: 5 ft 11 in Weight: 88.2 kg Allergies Allergy/AdvReac Type Severity Reaction Status Date / Time No Known Allergies Allergy Unverified 09/12/17 11:08 Medications Home Medications Medication Instructions Recorded Confirmed Last Taken Simvastatin (Zocor) 40 mg PO QPM #0 tab 01/07/13 Unknown Active Medications Generic Name Dose Route Start Last Admin Trade Name Freq PRN Reason Stop Dose Admin Docusate Sodium 100 mg 04/19/20 21:00 04/20/20 10:08 Docusate Sodium 100 Mg Cap PO 05/19/20 20:59 100 mg BID ZHANG Administration Sodium Chloride 1,000 mls @ 80 mls/hr 04/19/20 14:30 04/20/20 17:22 Nss 1000ml IV 05/19/20 14:29 80 mls/hr .[id number] ZHANG Administration Oxycodone HCl 5 - 10 mg 04/19/20 18:00 04/20/20 17:22 Oxycodone Hcl Ir 5 Mg Tab (Immediate Release) PO 05/03/20 17:59 5 mg Q6 ZHANG Administration Pantoprazole Sodium 40 mg 04/20/20 09:00 04/20/20 10:08 Pantoprazole 40 Mg Tab PO 05/20/20 08:59 40 mg QAM ZHANG Administration NPO Date Last Intake of Fluids: 04/19/20 Time Last Intake of Fluids: 23:59 Date Last Intake of Solids: 04/19/20 Time Last Intake of Solids: 23:59 Past Medical History Medical History (Updated 04/20/20 @ 18:07 by Andrews Kelley MD) GERD (gastroesophageal reflux disease) Hyperlipidemia Infection of right prosthetic hip joint LBBB (left bundle branch block) Past Surgical History Surgical History History of cataract surgery History of total hip replacement History of total knee replacement L DUNIA 09/2017. SAB with MAC. no issues. Social History Smoking Status: Never smoker Hx Alcohol Use: No Hx Substance Use: No Physical Exam Vital Signs Last Vital Signs Temp 36.6 C 04/20/20 15:09 Pulse 86 04/20/20 15:09 Resp 19 04/20/20 15:09 BP 113/76 04/20/20 15:09 Pulse Ox 94 04/20/20 15:09 Testing Laboratory Results 04/19/20 18:50 04/19/20 18:49 PT 10.7 Seconds (9.0-12.0) 04/19/20 18:49 INR 1.0 (0.9-1.1) 04/19/20 18:49 APTT 30.1 Seconds (21.0-31.0) 04/19/20 18:49 Urine Color Yellow 04/19/20 19:55 Urine Appearance Clear (Clear) 04/19/20 19:55 Urine pH 7.0 (4.5-7.5) 04/19/20 19:55 Ur Specific [place] 1.010 (1.000-1.030) 04/19/20 19:55 Urine Protein Negative (Negative) 04/19/20 19:55 Urine Glucose (UA) Negative (Negative) 04/19/20 19:55 Urine Ketones Negative (Negative) 04/19/20 19:55 Urine Nitrite Negative (Negative) 04/19/20 19:55 Ur Leukocyte Esterase Negative (Negative) 04/19/20 19:55 Electrocardiogram Date: 04/19/20 Findings: + NSR @ (85) Sinus rhythm with occasional Premature ventricular complexes Left bundle branch block Abnormal ECG When compared with ECG of 12-SEP-2017 11:55, Premature ventricular complexes are now Present Confirmed by Han Oseguera ([id number]) on 04/20/2020 4:08:14 PM Chest X-Ray Date: 04/19/20 TWO VIEW CHEST CLINICAL HISTORY: Preoperative examination. FINDINGS: PA and lateral chest radiographs are compared to study dated 09/12/2017. The cardiomediastinal silhouette is unremarkable noting atherosclerotic calcification of the thoracic aorta. There is chronic elevation of the right hemidiaphragm with bibasilar scarring/atelectasis. Chronic interstitial thickening is similar to previous. No airspace consolidation or pleural effusion is identified. There is no pneumothorax. The skeletal structures are osteopenic. The bony thorax appears intact. Advanced arthritic change and deformity is present in both shoulders. Degenerative change is also seen in the thoracic spine. IMPRESSION: Chronic parenchymal changes as above with no active disease in the chest. Echocardiogram Echo 09/17/2017: EF 50-55%. Mild AI, trace TR. mildly dialted aortic root.
[2020-04-21] MEDS: OXYCODONE HCL IR 5 MG TAB (IMMEDIATE RELEASE) PO SCH ×4 (00:29→20:42)
[2020-04-21] MEDS: SODIUM CHLORIDE 0.9% 1000ML 1,000 ML IV SCH ×3 (04:14→21:36)
[2020-04-21 07:27] LABS: Hematocrit (blood only) 38.3 % (42-52); Hemoglobin 12.1 g/dL (14.0-18.0); Mean Corpuscular Hgb Conc 31.6 g/dL (32-36); Mean Corpuscular Volume 85.5 fL (80-100); Mean Platelet Volume 9.2 fL (7.4-10.4); Platelet Count 180 K/uL (130-400); RDW Coefficient of Variation 15.9 % (11.5-14.5); RDW Standard Deviation 50.2 fL (36.4-46.3); Red Blood Count 4.48 M/uL (4.7-6.1); White Blood Count 4.93 K/uL (4.8-10.8)
[2020-04-21 08:22] LABS: BUN Creatinine Ratio 17.6 (10-20); Calcium 8.5 mg/dl (8.5-10.1); Creatinine Clr Calc Pharmacy 94.3 ml/min; Est GFR (African American) 105.6; Est GFR (Non-African American) 91.1; Potassium 3.9 mmol/L (3.5-5.1)
[2020-04-21] MEDS: PANTOprazole 40 MG TAB PO SCH (08:28)
[2020-04-21] MEDS: DOCUSATE SODIUM 100 MG CAP PO SCH ×2 (10:37→21:10)
[2020-04-21] MEDS ORDERED: LARYING-O-JET KIT (LTA) ONE (12:37)
[2020-04-21] MEDS ORDERED: GLYCOPYRROLATE 0.2 MG/ML VIAL ONE (12:37)
[2020-04-21] MEDS ORDERED: LIDOCAINE HCL 2% 2 ML VIAL/AMP(20MG/ML) INFIL ONE (12:37)
[2020-04-21] MEDS ORDERED: PROPOFOL IV EMULSION 10 MG/ML 20 ML VIAL IV ONE (12:37)
[2020-04-21] MEDS ORDERED: ROCURONIUM BROMIDE 10 MG/ML 5 ML VIAL IV ONE (12:37)
[2020-04-21] MEDS ORDERED: PHENYLEPHRINE 100MCG/ML 5ML SYR ONE (12:37)
[2020-04-21] MEDS ORDERED: ONDANSETRON INJ 2 MG/ML 2 ML VIAL ONE (12:37)
[2020-04-21] MEDS ORDERED: DEXAMETHASONE SOD INJ 4 MG/ML VIAL ONE (12:37)
[2020-04-21] MEDS ORDERED: ePHEDrine sulfate 50 MG/ML SYR ONE (12:37)
[2020-04-21] MEDS ORDERED: NEOSTIGMINE METHYLSULFATE 5 MG/5 ML SYR ONE (12:37)
[2020-04-21] MEDS ORDERED: fentaNYL citrate 100 MCG/2 ML VIAL ONE (12:38)
[2020-04-21] MEDS ORDERED: MIDAZOLAM HCL 1 MG/ML 2ML VIAL ONE (12:38)
[2020-04-21] MEDS ORDERED: BACITRACIN INJ 50,000 UNIT VIAL ONE ×3 (12:49→16:58)
[2020-04-21] MEDS ORDERED: fentaNYL citrate 100 MCG/2 ML VIAL IV PRN (12:59)
[2020-04-21] MEDS ORDERED: ATROPINE SULFATE 0.1 MG/ML 10ML SYR IV PRN (12:59)
[2020-04-21] MEDS ORDERED: ePHEDrine sulfate 50 MG/ML AMP IV PRN (12:59)
[2020-04-21] MEDS ORDERED: ONDANSETRON INJ 2 MG/ML 2 ML VIAL IV PRN ×2 (12:59→20:09)
--- NOTE | 2020-04-21 13:05 | Hospitalist Progress Note ---
Date of Service April 21, 2020 Assessment & Plan (1) Infection of right prosthetic hip joint: Defer antibiotics post surgical wound collection. Blood cultures ngtd Surgery today (2) LBBB (left bundle branch block): Similar to prior EKG. No further workup required for this. (3) Hyperlipidemia: Notable history of this. Follow up with PCP after discharge. Was on statin in the past but has not taken over the last two years (4) DVT prophylaxis: SCDs. Chemical prophylaxis deferred to primary orthopedic team. Admission and Anticipated Discharge Date Admission Date: April 19, 2020 Subjective Awaiting surgery when I saw him this morning. No complaints. ROS Constitutional: no chills, aches, sweats or fever Respiratory: no sob,cough, sputum, or wheezing Cardiac: no chest pain, palpitations, edema, orthopnea or lightheadedness GI: no abdominal pain, nausea, vomiting, diarrhea or constipation : no dysuria or hesitancy Extremities: no joint pain or weakness Skin: no rash All other systems reviewed and negative Physical Exam Physical Exam: General: no distress Eyes: normal inspection, PERLL Respiratory: chest non tender, clear to auscultation, normal breath sounds, no respiratory distress, no accessory muscle use Cardiac: regular rate and rhythm, no rub or gallop, no murmur, no edema, no jvd GI/: active bowel sounds, no abd pain or tenderness, soft, non distended Extremities: normal range of motion, normal strength, non tender Neuro/Psych: alert and oriented x 3, normal mood and affect Skin: normal color, dry Results & Data Results & Data ([facility]) Vital Signs (Past 12 Hours) Vital Signs Temp Pulse Pulse Resp BP Pulse Ox 04/21/20 12:40 36.6 C 83 18 145/96 H 98 04/21/20 08:27 36.5 C 82 18 111/72 97 PG Care Time/CCT Total # of Minutes Spent Total Time Spent with Patient: Total time spent is greater than 50% in coordination of care (as documented) at patient's floor/unit and/or counseling patient: Coding Level of Care Code 66131 Subseq Hosp Care Lvl 2 Diagnoses Infection of right prosthetic hip joint T84.51XA LBBB (left bundle branch block) I44.7 Hyperlipidemia E78.5 DVT prophylaxis Z29.9
--- NOTE | 2020-04-21 13:09 | History & Physical Bridge Note ---
Date of Service April 21, 2020 History & Physical Bridge Note I have examined the patient, reviewed the History & Physical and in the interval since the performance of the History & Physical I have noted the following changes of clinical significance: no changes noted
[2020-04-21] MEDS ORDERED: VANCOMYCIN CONSULT ACTIVE PRN ×2 (13:14→13:25)
--- NOTE | 2020-04-21 13:14 | Orthopedic Progress Note ---
Date of Service April 21, 2020 Assessment & Plan (1) Infection of right prosthetic hip joint: The patient is a 74-year-old male with right hip periprosthetic joint infection, draining sinus tracts x2 months. The patient was medically stabilized on 04/21/2020. I indicated the patient for explant of right total hip prosthesis, irrigation and debridement, placement of antibiotic cement spacer. The patient was informed of the risks and benefits of surgery, which include but not limited to infection, bleeding, blood clots, damage to nerves, vessels, bone including fractures and injury to soft tissue, hip dislocation, leg length discrepancy, need for additional surgery and . Alternatives to in surgery included no surgery which would result and worsening symptoms and clinical picture. The patient chose to move forward with surgical intervention and informed consent was obtained. IV antibiotics on-call to the OR hold for cultures. Admission and Anticipated Discharge Date Admission Date: April 19, 2020 Subjective Patient seen in preoperative holding, comfortable, no acute issues, pain well controlled. Denies F/C/N/V/SOB/CP. Review of Systems Review of Systems: All systems reviewed & are unremarkable except as noted in HPI & below Constitutional: as per Subjective / HPI Physical Exam Physical Exam: Right lower extremity is neurovascular sensory intact grossly, compartment soft nontender, right hip incision to draining sinus tracts, purulent drainage. Positive edema, mild raphael-incisional erythema. Constitutional: WD/WN, vitals as above Results & Data ([facility]) Vital Signs (Past 12 Hours) Vital Signs Temp Pulse Pulse Resp BP Pulse Ox 04/21/20 12:40 36.6 C 83 18 145/96 H 98 04/21/20 08:27 36.5 C 82 18 111/72 97
[2020-04-21] MEDS ORDERED: CEFEPIME 1,000 MG in SYRINGE 0 ML IV ONE (13:16)
[2020-04-21] MEDS ORDERED: VANCOMYCIN HCL 1,000 MG/270 ML BAG IV SCH (13:30)
[2020-04-21] MEDS ORDERED: CEFEPIME 2,000 MG in SYRINGE 0 ML IV ONE (13:30)
[2020-04-21] MEDS ORDERED: VANCOMYCIN HCL 1,250 MG in SODIUM CHLORIDE 0.9% 500 ML IV SCH (13:30)
[2020-04-21] MEDS ORDERED: MINERAL OIL LIGHT 10 ML BTL ONE (13:43)
[2020-04-21] MEDS ORDERED: VANCOMYCIN HCL 1000MG/20ML VIAL ONE ×2 (13:43→17:03)
[2020-04-21] MEDS ORDERED: TOBRAMYCIN SULFATE 1,200 MG VIAL ONE (13:46)
--- NOTE | 2020-04-21 14:46 | Pharmacy Report ---
Pharmacy Abx Dose Short Note - Date of Service April 21, 2020 - Assessment & Plan Assessment 74 year old M receiving vancomycin for treatment of R hip prosthesis infection Day # 1 of antimicrobial therapy. Plan Vancomycin Patient meets criteria for vancomycin AUC dosing nomogram AUC/OLIVIER is the preferred PK/PD target for vancomycin * Target AUC/OLIVIER = 400-600 * AUC guided dosing is effective and associated with decreased risk of nephrotoxicity Pharmacy will continue to follow and will adjust dose/frequency as necessary. Thank you.
[2020-04-21] MEDS ORDERED: CEFEPIME 2,000 MG/20 ML VIAL IV STA (15:17)
[2020-04-21] MEDS ORDERED: CEFEPIME 2,000 MG in SYRINGE 0 ML IV STA (15:20)
[2020-04-21] MEDS ORDERED: ALBUMIN HUMAN 5% 12.5 GM/250 ML VIAL IV ONE (16:43)
--- NOTE | 2020-04-21 18:18 | Post Operative Brief Note ---
Immediate Post Op Note v1 Date of Surgery April 21, 2020 Pre & Post Diagnosis Operation Date: 04/21/20 08:15 Pre-Op Diagnosis: Infection of right prosthetic hip joint Post-Op Diagnosis: Infection of right prosthetic hip joint I identified the patient and participated in the time-out.: Yes Procedure Operation Date: 04/21/20 08:15 Actual Procedures p Explant Right Total Hip Arthroplasty, Irrigation and Debridement and Placement Antibiotic Spacer(Right) - Rene Arias DO Surgeon Rene Arias DO [employer] Jhonathan Gongora Estimated Blood Loss 500 Findings Consistent with Post-Op Diagnosis Fluids 1500 cc LR, 500 cc albumin Specimens Culture swabs x3 of synovial fluid Tissue cultures x3 synovium, acetabulum and femur Drains Caldera Catheter (16 zambian caldera placed at end of surgery) and Hemovac Drain Anesthesia Type General Complications none Disposition Disposition: Recovery Room Overlapping Procedure I was present for: the critical portions of procedure. I was immediately available: during the entire case. Back up surgeon: was not required during procedure.
--- NOTE | 2020-04-21 18:19 | Operative Report ---
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 Post-Op Diagnosis: Infection of right prosthetic hip joint I identified the patient and participated in the time-out.: Yes Procedure Operation Date: 04/21/20 08:15 Actual Procedures p Explant Right Total Hip Arthroplasty, Irrigation and Debridement and Placement Antibiotic Spacer(Right) - Rene Arias DO Surgeon Rene Arias DO Buffing Wheel Former Automatic Jhonathan Gongora Estimated Blood Loss 500 Findings Consistent with Post-Op Diagnosis Fluids 1500 cc LR, 500 cc albumin Specimens Synovial fluid cultures x3 Tissue cultures x3, synovium, acetabulum and femur Drains Hemovac drain deep to fascia Anesthesia Type General Complications none Disposition Disposition: Recovery Room Description of Procedure Following induction of adequate general anesthesia, the patient was transferred to the OR table and placed in lateral decubitus position with left hip down. The right hip was prepped and draped in the typical sterile fashion using Betadine. There was two 1cm draining sinus tracts at the middle and distal aspect of the incision with cloudy white drainage. A timeout was performed, patient identified and site laura verified. IV antibiotics held for intra- operative cultures. A posterolateral/Jess-Langenbeck incision was made inline with the previous incision. Excision of the previous scar and sinus tracts was performed. Subcutaneous tissue was sharply dissected. We appreciated a mild collection of fluid in the subcutaneous tissues. Electrocautery was utilized for hemostasis. Subcutaneous dissection was carried down to the Fascia which was significantly scarred in. The fascia was incised throughout the length of the wound and retracted with the Charnley retractor. The bursa was taken down and the short external rotators and capsule were identified and tagged with two #1 Vicryl sutures. The short external rotators and capsule were divided from the posterior aspect of the femur using electrocautery. Both external rotators and posterior capsule were swept posterior and protected, along with protecting the sciatic nerve. Total hip prosthesis was identified and three intra-articular cultures were obtained. Meticulous removal of intra-articular fibrous scar tissue was performed with bovie. Tissue cultures x 3 were taken at this time. The hip prosthesis was gently dislocated by flexion and internal rotation in a controlled manner. The femoral head was removed from the trunion, which was clean and was without signs of wear. The proximal femur was cleared of fibrous tissue and bone cleared around the proximal prosthesis. Utilizing flexible osteotomes, the bone prosthesis interface was sequentially disrupted in a controlled manner starting with anterior/posterior followed by medial and lateral prosthesis. Care was taken to preserve proximal femur bone. The slap hammer was attached to the proximal femur and the prosthesis was removed without loss of excess bone or fracture. The canal was cleared of fibrous tissue with the back edi coordinator device. Next, exposure of the acetabulum was obtained. Additional scar tissue removal and debridement of the intra-articular soft tissue was performed. There was a abundance of mary overgrowth surrounding the acetabular component. The cup was grossly loose. Next the liner was removed and followed by two acetabular screws. The cup was easily removed with minimal bone loss and no fracture appreciated. The acetabulum was cleared of remaining soft tissue and mary osteophytes with the rongeur. We reamed the acetabulum with the 60mm reamer followed by the 61mm reamer. Care was taken at this point to remove any fibrous tissue throughout the hip joint until healthy bleeding tissue was left with the use of torres, rongeur, scalpel, Bovie and curettes. Next, access to the proximal femur was once more gained and final preparation of the femur was performed utilizing sequential broaches starting with 1 and carried to a size 3. Once satisfied the the fit of the femur the broach was removed and the hip was then irrigated with 9L of sterile saline solution with bacitracin. A three minute Betadine soak was also performed and irrigated with copious amounts of sterile saline solution. Next, on the back table 3 bags of Simplex antibiotic cement containing tobramycin was mixed with 3 grams of vancomycin per bag. A size 1 x 105 stem was placed in the Prostalac mold. Once cement hardened the stem was removed from the mold and cleared of excess cement. With the remaining cement a 42 x 32mm Prostalac polyethylene liner was cemented into place and held until cement the hardened. Excess cement was removed with hemostat during the hardening process. Access to the proximal femur was obtained and the stem was impacted into place gently. A single bag of Simplex antibiotic cement containing tobramycin was mixed and the proximal aspect of the antibiotic cement spacer was cemented into place. Once cement had hardened a trial reduction was performed with a +9 x 32 trial femoral head followed by a +13 x32 femoral head and found to be stable with leg lengths equal. The hip was dislocated, trunion cleaned and the final +13 x 32 femoral head [address] place. The hip was reduced once more and range of motion checked. The hip was stable in all planes of motion and legs equal. The wound was once again irrigated with copious amounts of sterile saline solution with bacitracin. The deep tissue capsule/external rotators were closed using #1 PDS in a figure of eight interrupted fashion. Hemovac drain was placed deep to fascia. The fascia was closed using #1 PDS in a figure of eight interrupted fashion. The subcutaneous tissue was closed using interrupted 3-0 PDS, and skin was closed with edward. Sterile dressings were applied which included Nataliya incisional vacuum, drain sponge and foam tape. The patient tolerated the procedure well and was transported to PACU in stable condition and was without apparent complications. Due to the complex nature of the procedure, the entire surgery was performed with the operational assistance of Jhonathan Gongora PA-C. The payroll human resources assistant, under direct supervision, was involved in the actual performance of all aspects of the surgical procedure including patient positioning, hemostasis, tissue retraction, instrument management and wound closure. I attest to the content of the Intraoperative Record and any orders documented therein. Any exceptions are noted below.
[2020-04-21] MEDS ORDERED: ACETAMINOPHEN 1,000 MG/100 ML VIAL IV STA (19:20)
[2020-04-21] MEDS ORDERED: ACETAMINOPHEN 1000 MG/100 ML IV IV ONE (19:20)
--- NOTE | 2020-04-21 19:25 | XRay Report ---
XR hip 1V RT w pelvis CLINICAL HISTORY: IN PACU - A/P PELVIS and LATERAL HIP COMPARISON STUDY: Pelvis 10/10/2017. FINDINGS: There is a right femoral implant with a cement spacer at the acetabulum. The hardware appea rs intact. Alignment is anatomic. Skin edward and surgical drains are in place. There is evidence fo r prior left total hip arthroplasty. No fracture or dislocation within the pelvis or hips. IMPRESSION: Postoperative changes within the right hip as described above. No fractures. ACT 112: Negative or not required by law. Electronically signed by: Mookie Curry M.D. 04/21/2020 7:24 PM
--- NOTE | 2020-04-21 19:41 | Anesthesiology Progress Note ---
Date of Service April 21, 2020 Anesthesia Post Procedure Vital Signs Vital Signs: Temp Pulse Pulse Resp BP Pulse Ox 04/21/20 19:35 36.6 C 87 18 108/54 L 99 04/21/20 19:25 86 18 102/56 L 96 04/21/20 19:15 85 18 93/58 L 99 04/21/20 19:05 81 18 89/54 L 100 04/21/20 18:56 36.6 C 75 18 96/59 L 97 04/21/20 12:40 36.6 C 83 18 145/96 H 98 04/21/20 08:27 36.5 C 82 18 111/72 97 04/21/20 00:13 36.6 C 76 15 128/64 95 Pain Intensity Right Hip: Pain Intensity: 3 Transfer of Care Handoff Completed per policy Notes Mental Status: alert / awake / arousable Patient Amnestic to Procedure: Yes Nausea / Vomiting: adequately controlled Pain: adequately controlled Airway Patency, RR, SpO2: stable & adequate BP & HR: stable & adequate Hydration State: stable & adequate Anesthetic Complications: no major complications apparent
--- NOTE | 2020-04-21 19:42 | Orthopedic Progress Note ---
Date of Service April 21, 2020 Assessment & Plan (1) Infection of right prosthetic hip joint: s/p Explant right total hip, I+D, placement of antibiotic cement spacer -IV vanco/cefepime -DVT ppx: SCDs, TEDs, Lovenox daily -Partial WB RLE -PT/OT -PO XR pending -follow up IO cultures -ID consult -monitor drain output -am labs -DC planning Admission and Anticipated Discharge Date Admission Date: April 19, 2020 Subjective Post Operative Progress Note Patient seen in PACU, comfortable, still waking up from anesthesia, no acute issues. Review of Systems Review of Systems: All systems reviewed & are unremarkable except as noted in HPI & below Constitutional: as per Subjective / HPI Physical Exam Physical Exam: RLE NVSI +EHL/FHL/TA/GS SILT grossly, +2 DP pulse, compartments soft NT, dressing cdi. Constitutional: WD/WN, vitals as above Results & Data ([facility]) Vital Signs (Past 12 Hours) Vital Signs Temp Pulse Pulse Resp BP Pulse Ox 04/21/20 19:35 36.6 C 87 18 108/54 L 99 04/21/20 19:25 86 18 102/56 L 96 04/21/20 19:15 85 18 93/58 L 99 04/21/20 19:05 81 18 89/54 L 100 04/21/20 18:56 36.6 C 75 18 96/59 L 97 04/21/20 12:40 36.6 C 83 18 145/96 H 98 04/21/20 08:27 36.5 C 82 18 111/72 97
[2020-04-21] MEDS ORDERED: NALOXONE HCL 0.4 MG/1 ML VIAL/CARP IV PRN (20:09)
[2020-04-21] MEDS ORDERED: bisacodyL 10 MG SUPP PR PRN (20:09)
[2020-04-21] MEDS ORDERED: MAGNESIUM HYDROXIDE SUSP 30 ML UDC PO PRN (20:09)
[2020-04-21] MEDS ORDERED: HYDROmorphone INJ 0.5 MG/0.5 ML SYR IV PRN (20:09)
[2020-04-21] MEDS ORDERED: METOCLOPRAMIDE HCL INJ 5 MG/ML 2 ML VIAL IV PRN (20:09)
[2020-04-21] MEDS ORDERED: SODIUM CHLORIDE 0.9% 1000ML 500 ML IV ONE ×2 (20:51→21:39)
[2020-04-21] MEDS ORDERED: DOCUSATE SODIUM 100 MG CAP PO SCH (21:00)
[2020-04-21] MEDS: SENNA 8.6 MG TAB PO SCH (21:10)
[2020-04-21] MEDS: VANCOMYCIN HCL 1,250 MG in SODIUM CHLORIDE 0.9% 250 ML IV SCH (21:33)
[2020-04-21 23:17] LABS: Hemoglobin 7.5 g/dL (14.0-18.0)
[2020-04-22] MEDS: OXYCODONE HCL IR 5 MG TAB (IMMEDIATE RELEASE) PO SCH ×4 (00:21→17:26)
[2020-04-22] MEDS: CEFEPIME 2,000 MG in SYRINGE 0 ML IV SCH ×2 (04:24→15:20)
[2020-04-22 05:06] LABS: Hematocrit (blood only) 21.6 % (42-52); Hemoglobin 6.8 g/dL (14.0-18.0); Mean Corpuscular Hgb Conc 31.5 g/dL (32-36); Mean Corpuscular Volume 85.7 fL (80-100); Platelet Count 154 K/uL (130-400); RDW Coefficient of Variation 15.6 % (11.5-14.5); RDW Standard Deviation 49.1 fL (36.4-46.3); Red Blood Count 2.52 M/uL (4.7-6.1); White Blood Count 6.96 K/uL (4.8-10.8)
[2020-04-22] MEDS ORDERED: SODIUM CHLORIDE 0.9% 250 ML IV PRN ×6 (05:08→23:12)
[2020-04-22 05:27] LABS: BUN Creatinine Ratio 18.1 (10-20); C Reactive Protein 3.1 mg/dl (0-0.29); Calcium 6.8 mg/dl (8.5-10.1); Creatinine Clr Calc Pharmacy 88.1 ml/min; Est GFR (African American) 102.7; Est GFR (Non-African American) 88.6; Potassium 4.5 mmol/L (3.5-5.1)
[2020-04-22 05:46] LABS: Basophils # (auto) 0.01 K/uL (0-0.2); Basophils % (auto) 0.1 %; Immature Granulocytes # (auto) 0.01 K/uL (0.00-0.02); Immature Granulocytes % (auto) 0.1 %; Lymphocytes % (auto) 8.6 %; Monocytes # (auto) 0.35 K/uL (0.11-0.59); Neutrophils # (auto) 5.99 K/uL (1.4-6.5); Neutrophils % (auto) 86.2 %; Ovalocytes 1+
[2020-04-22] MEDS: VANCOMYCIN HCL 1,250 MG in SODIUM CHLORIDE 0.9% 250 ML IV SCH ×2 (06:06→13:45)
[2020-04-22] MEDS: SODIUM CHLORIDE 0.9% 1000ML 1,000 ML IV SCH ×2 (06:07→14:18)
[2020-04-22] MEDS ORDERED: COUGH DROP (SUGAR FREE) LOZ 24 LOZ/1 BOX BUCCAL ONE (08:01)
[2020-04-22] MEDS ORDERED: COUGH DROP (SUGAR FREE) LOZ 24 LOZ/1 BOX BUCCAL PRN ×2 (08:03→08:15)
[2020-04-22] MEDS: DOCUSATE SODIUM 100 MG CAP PO SCH ×2 (08:54→22:31)
[2020-04-22] MEDS: MULTIVITAMIN TAB PO SCH (08:54)
[2020-04-22] MEDS: ENOXAPARIN INJ 40 MG/0.4 ML SYR SQ SCH (08:54)
[2020-04-22] MEDS: PANTOprazole 40 MG TAB PO SCH (08:54)
--- NOTE | 2020-04-22 09:00 | Anesthesiology Progress Note ---
Date of Service April 22, 2020 Anesthesia Post Procedure Vital Signs Vital Signs: Temp Pulse Pulse Pulse Resp BP BP 04/22/20 08:52 36.6 C 100 H 16 105/53 L 04/22/20 08:27 36.9 C 96 H 14 96/55 L 04/22/20 07:27 36.5 C 100 H 14 93/53 L 04/22/20 06:57 36.7 C 100 H 14 97/53 L 04/22/20 06:42 36.5 C 106 H 18 94/60 L 04/22/20 06:19 36.5 C 118 H 18 79/51 L 04/22/20 06:16 04/22/20 06:00 96 H 04/22/20 04:00 36.4 C L 95 H 16 94/56 L 04/22/20 03:59 36.5 C 93 H 14 04/22/20 02:00 95 H 18 102/62 04/22/20 00:00 100 H 16 89/53 L 04/21/20 23:27 36.3 C L 94 H 14 04/21/20 22:27 97 H 04/21/20 22:05 36.5 C 99 H 20 04/21/20 21:00 36.2 C L 87 18 04/21/20 20:37 36.3 C L 84 18 04/21/20 20:09 36.6 C 90 17 04/21/20 20:02 36.4 C L 89 18 04/21/20 19:45 95 H 18 04/21/20 19:35 36.6 C 87 18 04/21/20 19:25 86 18 04/21/20 19:15 85 18 04/21/20 19:05 81 18 04/21/20 18:56 36.6 C 75 18 04/21/20 12:40 36.6 C 83 18 BP Pulse Ox 04/22/20 08:52 93 04/22/20 08:27 95 04/22/20 07:27 97 04/22/20 06:57 92 04/22/20 06:42 91 04/22/20 06:19 93 04/22/20 06:16 79/51 L 04/22/20 06:00 109/59 L 04/22/20 04:00 93/52 L 97 04/22/20 03:59 100/62 99 04/22/20 02:00 94/52 L 96 04/22/20 00:00 84/47 L 04/21/20 23:27 110/62 100 04/21/20 22:27 83/42 L 99 04/21/20 22:05 84/51 L 99 04/21/20 21:00 80/47 L 97 04/21/20 20:37 69/45 L 94 04/21/20 20:09 95/57 L 95 04/21/20 20:02 96/59 L 93 04/21/20 19:45 94/50 L 99 04/21/20 19:35 108/54 L 99 04/21/20 19:25 102/56 L 96 04/21/20 19:15 93/58 L 99 04/21/20 19:05 89/54 L 100 04/21/20 18:56 96/59 L 97 04/21/20 12:40 145/96 H 98 Pain Intensity Right Hip: Pain Intensity: 3 Notes Mental Status: alert / awake / arousable Patient Amnestic to Procedure: Yes Nausea / Vomiting: adequately controlled Pain: adequately controlled Airway Patency, RR, SpO2: stable & adequate BP & HR: stable & adequate Hydration State: stable & adequate Anesthetic Complications: no major complications apparent, see Notes below (Pt alert/oriented. Currently receiving 1 unit PRBC. No acute distress noted.) and Pt Satisfied with anesthetic care
[2020-04-22] MEDS ORDERED: CALCIUM GLUCONATE 10% 1,000 MG in SODIUM CHLORIDE 0.9% 50 ML IV ONE (09:45)
[2020-04-22] MEDS: KETOROLAC TROMETHAMINE 15 MG/ML VIAL IV PRN (10:24)
--- NOTE | 2020-04-22 10:31 | Orthopedic Progress Note ---
Date of Service April 22, 2020 Assessment & Plan (1) Infection of right prosthetic hip joint: s/p Explant right total hip, I+D, placement of antibiotic cement spacer POD#1 -IV vanco/cefepime -DVT ppx: SCDs, TEDs, Lovenox daily -Partial WB RLE -PT/OT -PO XR demonstrates well aligned well fixed abx cement spacer, without fracture/dislocation -follow up IO cultures -ID consult -monitor drain output - 75/485 -am labs - as above, hgb 6.8, receiving transfusion -DC planning Admission and Anticipated Discharge Date Admission Date: April 19, 2020 Subjective Post Operative Progress Note Patient seen sitting up in bed, comfortable, denies complaints, pain well controlled, no acute issues. Denies F/C/N/V/SOB/CP. Review of Systems Review of Systems: All systems reviewed & are unremarkable except as noted in HPI & below Constitutional: as per Subjective / HPI Physical Exam Physical Exam: RLE NVSI +EHL/FHL/TA/GS SILT grossly, +2 DP pulse, compartments soft NT, dressing cdi. Constitutional: WD/WN, vitals as above Results & Data ([facility]) Vital Signs (Past 12 Hours) Vital Signs Temp Pulse Pulse Pulse Resp BP BP 04/22/20 08:52 36.6 C 100 H 16 105/53 L 04/22/20 08:27 36.9 C 96 H 14 96/55 L 04/22/20 07:27 36.5 C 100 H 14 93/53 L 04/22/20 06:57 36.7 C 100 H 14 97/53 L 04/22/20 06:42 36.5 C 106 H 18 94/60 L 04/22/20 06:19 36.5 C 118 H 18 79/51 L 04/22/20 06:16 04/22/20 06:00 96 H 04/22/20 04:00 36.4 C L 95 H 16 94/56 L 04/22/20 03:59 36.5 C 93 H 14 04/22/20 02:00 95 H 18 102/62 04/22/20 00:00 100 H 16 89/53 L 04/21/20 23:27 36.3 C L 94 H 14 BP Pulse Ox 04/22/20 08:52 93 04/22/20 08:27 95 04/22/20 07:27 97 04/22/20 06:57 92 04/22/20 06:42 91 04/22/20 06:19 93 04/22/20 06:16 79/51 L 04/22/20 06:00 109/59 L 04/22/20 04:00 93/52 L 97 04/22/20 03:59 100/62 99 04/22/20 02:00 94/52 L 96 04/22/20 00:00 84/47 L 04/21/20 23:27 110/62 100 Laboratory Results 04/22/20 04/22/20 04/22/20 Range/Units 04:39 04:39 04:39 WBC 6.96 (4.8-10.8) K/uL RBC 2.52 L (4.7-6.1) M/uL Hgb 6.8 L* (14.0-18.0) g/dL Hct 21.6 L (42-52) % MCV 85.7 (80-100) fL MCH 27.0 (25-34) pg MCHC 31.5 L (32-36) g/dL RDW Std Deviation 49.1 H (36.4-46.3) fL RDW Coeff of Lori 15.6 H (11.5-14.5) % Plt Count 154 (130-400) K/uL MPV 9.0 (7.4-10.4) fL Immature Gran % (Auto) 0.1 % Neut % (Auto) 86.2 % Lymph % (Auto) 8.6 % [place] % (Auto) 5.0 % Eos % (Auto) 0.0 % Baso % (Auto) 0.1 % Neut # (Auto) 5.99 (1.4-6.5) K/uL Lymph # (Auto) 0.60 L (1.2-3.4) K/uL [place] # (Auto) 0.35 (0.11-0.59) K/uL Eos # (Auto) 0.00 (0-0.5) K/uL Baso # (Auto) 0.01 (0-0.2) K/uL Immature Gran # (Auto) 0.01 (0.00-0.02) K/uL Ovalocytes 1+ ESR 6 (0-14) mm/hr Sodium 139 (136-145) mmol/L Potassium 4.5 D (3.5-5.1) mmol/L Chloride 111 H (98-107) mmol/L Carbon Dioxide 26 (21-32) mmol/L Anion Gap 2.0 L (3-11) BUN 14 (7-18) mg/dl Creatinine 0.76 (0.6-1.4) mg/dl Est Cr Clr Drug Dosing 88.1 ml/min Est GFR ( Amer) 102.7 Est GFR (Non-Af Amer) 88.6 BUN/Creatinine Ratio 18.1 (10-20) Glucose 141 H (70-99) mg/dl Calcium 6.8 L D (8.5-10.1) mg/dl C-Reactive Protein 3.10 H (0-0.29) mg/dl Blood Type Antibody Screen Crossmatch 04/21/20 04/21/20 Range/Units 22:59 14:50 WBC (4.8-10.8) K/uL RBC (4.7-6.1) M/uL Hgb 7.5 L D (14.0-18.0) g/dL Hct 23.0 L (42-52) % MCV (80-100) fL MCH (25-34) pg MCHC (32-36) g/dL RDW Std Deviation (36.4-46.3) fL RDW Coeff of Lori (11.5-14.5) % Plt Count (130-400) K/uL MPV (7.4-10.4) fL Immature Gran % (Auto) % Neut % (Auto) % Lymph % (Auto) % [place] % (Auto) % Eos % (Auto) % Baso % (Auto) % Neut # (Auto) (1.4-6.5) K/uL Lymph # (Auto) (1.2-3.4) K/uL [place] # (Auto) (0.11-0.59) K/uL Eos # (Auto) (0-0.5) K/uL Baso # (Auto) (0-0.2) K/uL Immature Gran # (Auto) (0.00-0.02) K/uL Ovalocytes ESR (0-14) mm/hr Sodium (136-145) mmol/L Potassium (3.5-5.1) mmol/L Chloride (98-107) mmol/L Carbon Dioxide (21-32) mmol/L Anion Gap (3-11) BUN (7-18) mg/dl Creatinine (0.6-1.4) mg/dl Est Cr Clr Drug Dosing ml/min Est GFR ( Amer) Est GFR (Non-Af Amer) BUN/Creatinine Ratio (10-20) Glucose (70-99) mg/dl Calcium (8.5-10.1) mg/dl C-Reactive Protein (0-0.29) mg/dl Blood Type A Positive Antibody Screen NEGATIVE Crossmatch See Detail
[2020-04-22] MEDS: FUROSEMIDE 20 MG in SYRINGE 0 ML IV ONE ×2 (13:39→13:40)
--- NOTE | 2020-04-22 14:02 | Hospitalist Progress Note ---
Date of Service April 22, 2020 Assessment & Plan (1) Infection of right prosthetic hip joint: S/p Explant Right Total Hip Arthroplasty, and Placement Antibiotic Spacer and I&D Vancomycin, cefepime - patient with ID consult via telehealth pending. Blood cultures ngtd Lovenox for DVT proph per surgery (2) LBBB (left bundle branch block): Similar to prior EKG. No further workup required for this. (3) Hyperlipidemia: Notable history of this. Follow up with PCP after discharge. Was on statin in the past but has not taken over the last two years (4) Heart murmur, systolic: 08/27. Asymptomatic. Follow up with pcp (5) Hypocalcemia: Ca 6.8 Replaced with 1g calcium gluconate IV recheck prp am (6) Acute blood loss anemia: Post op hgb 6.8 - 1 unit transfused Repeat hgb am (7) DVT prophylaxis: SCDs, Lovenox Thank you for involving us in the care of this patient. Medicine will sign off at this time. Please call with any questions or concerns Admission and Anticipated Discharge Date Admission Date: April 19, 2020 Subjective Mr. Rosas is in good spirits despite pain at his surgical site. He otherwise white s no complaints. Blood pressures are improving ROS Constitutional: no chills, aches, sweats or fever Respiratory: no sob,cough, sputum, or wheezing Cardiac: no chest pain, palpitations, edema, orthopnea or lightheadedness GI: no abdominal pain, nausea, vomiting, diarrhea or constipation : no dysuria or hesitancy Extremities: no joint pain or weakness Skin: no rash All other systems reviewed and negative Physical Exam Physical Exam: General: no distress Eyes: normal inspection, PERLL Respiratory: chest non tender, clear to auscultation, normal breath sounds, no respiratory distress, no accessory muscle use Cardiac: regular rate and rhythm, no rub or gallop, systolic murmur, no edema, no jvd GI/: active bowel sounds, no abd pain or tenderness, soft, non distended Extremities: normal range of motion, normal strength, non tender Neuro/Psych: alert and oriented x 3, normal mood and affect Skin: normal color, dry Results & Data Results & Data ([facility]) Vital Signs (Past 12 Hours) Vital Signs Temp Pulse Pulse Resp BP BP BP 04/22/20 08:52 36.6 C 100 H 16 105/53 L 04/22/20 08:27 36.9 C 96 H 14 96/55 L 04/22/20 07:27 36.5 C 100 H 14 93/53 L 04/22/20 06:57 36.7 C 100 H 14 97/53 L 04/22/20 06:42 36.5 C 106 H 18 94/60 L 04/22/20 06:19 36.5 C 118 H 18 79/51 L 04/22/20 06:16 79/51 L 04/22/20 06:00 96 H 109/59 L 04/22/20 04:00 36.4 C L 95 H 16 94/56 L 93/52 L 04/22/20 03:59 36.5 C 93 H 14 100/62 Pulse Ox 04/22/20 08:52 93 04/22/20 08:27 95 04/22/20 07:27 97 04/22/20 06:57 92 04/22/20 06:42 91 04/22/20 06:19 93 04/22/20 06:16 04/22/20 06:00 04/22/20 04:00 97 04/22/20 03:59 99 PG Care Time/CCT Total # of Minutes Spent Total Time Spent with Patient: Total time spent is greater than 50% in coordination of care (as documented) at patient's floor/unit and/or counseling patient: Coding Level of Care Code 00021 Subseq Hosp Care Lvl 3 Diagnoses Infection of right prosthetic hip joint T84.51XA LBBB (left bundle branch block) I44.7 Hyperlipidemia E78.5 Heart murmur, systolic R01.1 Hypocalcemia E83.51 Acute blood loss anemia D62 DVT prophylaxis Z29.9
[2020-04-22] MEDS: ACETAMINOPHEN 500 MG TAB PO PRN (15:14)
[2020-04-22] MEDS ORDERED: VANCOMYCIN TROUGH ONE (21:30)
[2020-04-22 21:53] LABS: Hematocrit (blood only) 21.7 % (42-52); Hemoglobin 6.9 g/dL (14.0-18.0)
--- NOTE | 2020-04-22 22:10 | Pharmacy Report ---
Pharmacy Abx Dose Short Note - Date of Service April 22, 2020 - Assessment & Plan Assessment 74 year old M receiving empiric vancomycin and cefepime for treatment of infection of right prosthetic hip joint Day # 2 of antimicrobial therapy. Plan Vancomycin * Trough level of 18.4 mcg/mL is therapeutic * Continue dose of 1250 mg IV every 8 hours * Goal trough level for this infection : 15 to 20 mcg/mL * Trough level ordered for: 04/24/20 Cefepime * Will increase to 2 g IV q8h given involvement of prosthetic hip joint Pharmacy will continue to follow and will adjust dose/frequency as necessary. Thank you.
[2020-04-22] MEDS: SENNA 8.6 MG TAB PO SCH (22:31)
[2020-04-23] MEDS: VANCOMYCIN HCL 1,250 MG in SODIUM CHLORIDE 0.9% 250 ML IV SCH ×3 (00:17→13:33)
[2020-04-23] MEDS: SODIUM CHLORIDE 0.9% 1000ML 1,000 ML IV SCH ×3 (00:18→19:52)
[2020-04-23] MEDS: CEFEPIME 2,000 MG in SYRINGE 0 ML IV SCH ×2 (01:05→08:51)
[2020-04-23] MEDS: OXYCODONE HCL IR 5 MG TAB (IMMEDIATE RELEASE) PO SCH ×4 (01:22→17:44)
[2020-04-23] MEDS ORDERED: SODIUM CHLORIDE 0.9% 1000ML 1,000 ML IV ONE (05:20)
[2020-04-23 06:37] LABS: Basophils # (auto) 0.01 K/uL (0-0.2); Basophils % (auto) 0.1 %; Eosinophils # (auto) 0.13 K/uL (0-0.5); Eosinophils % (auto) 1.9 %; Hematocrit (blood only) 22.9 % (42-52); Hemoglobin 7.6 g/dL (14.0-18.0); Immature Granulocytes # (auto) 0.02 K/uL (0.00-0.02); Immature Granulocytes % (auto) 0.3 %; Lymphocytes # (auto) 1.14 K/uL (1.2-3.4); Lymphocytes % (auto) 16.6 %; Mean Corpuscular Hemoglobin 28.8 pg (25-34); Mean Corpuscular Hgb Conc 33.2 g/dL (32-36); Mean Corpuscular Volume 86.7 fL (80-100); Mean Platelet Volume 9.8 fL (7.4-10.4); Monocytes # (auto) 0.45 K/uL (0.11-0.59); Monocytes % (auto) 6.6 %; Neutrophils # (auto) 5.11 K/uL (1.4-6.5); Neutrophils % (auto) 74.5 %; Platelet Count 145 K/uL (130-400); RDW Coefficient of Variation 15.7 % (11.5-14.5); RDW Standard Deviation 49.8 fL (36.4-46.3); Red Blood Count 2.64 M/uL (4.7-6.1); White Blood Count 6.86 K/uL (4.8-10.8)
[2020-04-23 07:11] LABS: BUN Creatinine Ratio 18.7 (10-20); C Reactive Protein 4.45 mg/dl (0-0.29); Calcium 7.3 mg/dl (8.5-10.1); Creatinine Clr Calc Pharmacy 117.4 ml/min; Est GFR (African American) 115.6; Est GFR (Non-African American) 99.7; Potassium 3.9 mmol/L (3.5-5.1)
[2020-04-23] MEDS ORDERED: SODIUM CHLORIDE 0.9% 250 ML IV PRN (08:28)
--- NOTE | 2020-04-23 08:32 | Orthopedic Progress Note ---
Date of Service April 23, 2020 Assessment & Plan (1) Infection of right prosthetic hip joint: s/p Explant right total hip, I+D, placement of antibiotic cement spacer POD#2 -IV vanco/ertapenem per [facility] ID -DVT ppx: SCDs, TEDs, Lovenox daily -Partial WB RLE -PT/OT -PO XR demonstrates well aligned well fixed abx cement spacer, without fracture/dislocation -follow up IO cultures -ID consult -monitor drain output -am labs - as above, hgb 7.6 this AM after 1 unit yesterday. Will transfuse 1 unit today with possible d/c later today. -DC planning--possibly home today if Hgb improves and home IV tx is set up. Admission and Anticipated Discharge Date Admission Date: April 19, 2020 Subjective States the right hip is sore but pain is controlled. Denies CP, SOB, LH when up walking. No new complaints. Would like to get home today if possible since he had his PICC line placed yesterday. Physical Exam 2 Constitutional: WD/WN, vitals as above Musculoskeletal: Hip: + surgical incision (left hip dressing C/D/I) and + surgical drain present (50 cc over last shift draining from hemovac); no deformity, no skin erythema and no ecchymosis Neurologic: normal touch/pain/proprioception Psychiatric: A+Ox3, euthymic affect Speech: normal rate/rhythm/volume of speech Results & Data ([facility]) Vital Signs (Past 12 Hours) Vital Signs Temp Pulse Pulse Pulse Resp BP BP 04/23/20 07:41 36.6 C 96 H 16 115/71 04/23/20 01:05 37.1 C 95 H 18 99/63 L 04/23/20 01:03 37.0 C 94 H 18 98/62 L 04/23/20 00:35 36.6 C 97 H 18 100/63 04/23/20 00:20 36.7 C 98 H 18 99/62 L 04/23/20 00:02 36.7 C 99 H 18 100/61 04/22/20 23:51 36.7 C 99 H 20 100/61 Pulse Ox 04/23/20 07:41 94 04/23/20 01:05 94 04/23/20 01:03 94 04/23/20 00:35 93 04/23/20 00:20 92 04/23/20 00:02 96 04/22/20 23:51 96 Laboratory Results Laboratory Tests 04/23/20 04/23/20 05:55 05:55 WBC 6.86 Hgb 7.6 L Hct 22.9 L C-Reactive Protein 4.45 H Procedures Replacement of Left Hip Joint with Synthetic Substitute, Uncemented, Open Approach (10/10/17) Revision of knee replacement, patellar component (01/07/13) Synovectomy, knee (01/07/13) Total hip replacement (01/19/15) Total knee replacement (12/04/11)
[2020-04-23] MEDS: DOCUSATE SODIUM 100 MG CAP PO SCH ×2 (08:50→19:53)
[2020-04-23] MEDS: MULTIVITAMIN TAB PO SCH (08:50)
[2020-04-23] MEDS: ENOXAPARIN INJ 40 MG/0.4 ML SYR SQ SCH (08:50)
[2020-04-23] MEDS: PANTOprazole 40 MG TAB PO SCH (08:50)
[2020-04-23] MEDS ORDERED: CALCIUM GLUCONATE 10% 1,000 MG in SODIUM CHLORIDE 0.9% 50 ML IV ONE (09:15)
[2020-04-23] MEDS: ERTAPENEM SODIUM 1,000 MG in SODIUM CHLORIDE 0.9% 50 ML IV SCH (09:48)
[2020-04-23] MEDS ORDERED: VANCOMYCIN CONSULT ACTIVE PRN (14:02)
[2020-04-23 14:04] LABS: Hematocrit (blood only) 26.1 % (42-52); Hemoglobin 8.7 g/dL (14.0-18.0)
[2020-04-23] MEDS ORDERED: VANCOMYCIN HCL 1,250 MG in SODIUM CHLORIDE 0.9% 250 ML IV SCH (18:00)
[2020-04-23] MEDS: SENNA 8.6 MG TAB PO SCH (19:53)
[2020-04-24] MEDS: OXYCODONE HCL IR 5 MG TAB (IMMEDIATE RELEASE) PO SCH ×3 (00:11→11:59)
[2020-04-24] MEDS: SODIUM CHLORIDE 0.9% 1000ML 1,000 ML IV SCH (03:45)
[2020-04-24] MEDS ORDERED: VANCOMYCIN TROUGH ONE (05:30)
[2020-04-24 06:14] LABS: Basophils # (auto) 0.01 K/uL (0-0.2); Basophils % (auto) 0.2 %; Eosinophils # (auto) 0.16 K/uL (0-0.5); Eosinophils % (auto) 2.5 %; Hematocrit (blood only) 25.2 % (42-52); Immature Granulocytes # (auto) 0.01 K/uL (0.00-0.02); Immature Granulocytes % (auto) 0.2 %; Lymphocytes % (auto) 22.3 %; Mean Corpuscular Hemoglobin 28.3 pg (25-34); Mean Corpuscular Hgb Conc 31.7 g/dL (32-36); Mean Platelet Volume 9.5 fL (7.4-10.4); Monocytes # (auto) 0.52 K/uL (0.11-0.59); Monocytes % (auto) 8.3 %; Neutrophils # (auto) 4.19 K/uL (1.4-6.5); Neutrophils % (auto) 66.5 %; Platelet Count 145 K/uL (130-400); RDW Coefficient of Variation 15.7 % (11.5-14.5); RDW Standard Deviation 51.2 fL (36.4-46.3); Red Blood Count 2.83 M/uL (4.7-6.1); White Blood Count 6.29 K/uL (4.8-10.8)
[2020-04-24 06:43] LABS: BUN Creatinine Ratio 12.5 (10-20); Calcium 7.1 mg/dl (8.5-10.1); Creatinine Clr Calc Pharmacy 128.7 ml/min; Est GFR (African American) 120.1; Est GFR (Non-African American) 103.6; Potassium 3.5 mmol/L (3.5-5.1)
[2020-04-24 06:44] LABS: C Reactive Protein 7.58 mg/dl (0-0.29)
[2020-04-24] MEDS: ENOXAPARIN INJ 40 MG/0.4 ML SYR SQ SCH (09:20)
[2020-04-24] MEDS: PANTOprazole 40 MG TAB PO SCH (09:20)
[2020-04-24] MEDS: MULTIVITAMIN TAB PO SCH (09:20)
[2020-04-24] MEDS: ERTAPENEM SODIUM 1,000 MG in SODIUM CHLORIDE 0.9% 50 ML IV SCH (09:21)
[2020-04-24] MEDS: DOCUSATE SODIUM 100 MG CAP PO SCH (09:21)
--- NOTE | 2020-04-24 09:23 | Pharmacy Report ---
Pharmacy Abx Dose Short Note - Date of Service April 24, 2020 - Assessment & Plan Assessment 74 year old M receiving VANCOMYCIN for treatment of R hip prosthesis infection. Day # 4 of antimicrobial therapy. Plan Vancomycin * Patient has been receiving VANCOMYCIN 1250mg IV q8h. Initial trough level drawn on 04/22 was therapeutic (18.4 mcg/mL). * Another trough level was scheduled prior to this morning's 0600 dose, however VANCOMYCIN was inadvertently dc'd last evening, so the level was not drawn. * Patient is being discharged with home health today and requires q12h dosing. I spoke with Sarath Pineda and recommended starting with VANCOMYCIN 1500mg IV q12h (1st dose this am) and checking a trough level on 04/26 or 04/27. Will increase to 1750mg IV q12h if necessary. * Goal trough level for SSTI : 15 to 20 mcg/mL. Pharmacy will continue to follow and will adjust dose/frequency as necessary. Thank you.
[2020-04-24] MEDS ORDERED: VANCOMYCIN HCL 1,500 MG in SODIUM CHLORIDE 0.9% 500 ML IV ONE (09:30)
[2020-04-24] MEDS: KETOROLAC TROMETHAMINE 15 MG/ML VIAL IV PRN (09:33)
[2020-04-24] MEDS: ACETAMINOPHEN 500 MG TAB PO PRN (09:33)
--- NOTE | 2020-04-24 10:06 | Orthopedic Progress Note ---
Date of Service April 24, 2020 Assessment & Plan (1) Infection of right prosthetic hip joint: s/p Explant right total hip, I+D, placement of antibiotic cement spacer POD#3 -IV vanco/ertapenem per [facility] ID. Vanco changed to 1500 BID but will have trough done Saturday or Saturday for any potential changes. -DVT ppx: SCDs, TEDs, Lovenox daily -Partial WB RLE -PT/OT -PO XR demonstrates well aligned well fixed abx cement spacer, without fracture/dislocation -follow up IO cultures -ID consult -monitor drain output -am labs - as above, hgb 8.0 this AM after 1 unit yesterday. -DC planning--home today with home nursing. We discussed staying until the hemovac drainage has lessened but he has refused to stay stating, "People heal better at home, shahla." Admission and Anticipated Discharge Date Admission Date: April 19, 2020 Subjective States the right hip pain is better today with minimal discomfort. Denies CP, SOB, LH when up walking. No new complaints. Ready to go home. Physical Exam Constitutional: WD/WN, vitals as above Musculoskeletal: Hip: + surgical incision (left hip dressing C/D/I) and + surgical drain present (75 cc's emptied this AM. 105 cc's yesterday.); no deformity, no skin erythema and no ecchymosis Neurologic: normal touch/pain/proprioception Psychiatric: A+Ox3, euthymic affect Speech: normal rate/rhythm/volume of speech Results & Data ([facility]) Vital Signs (Past 12 Hours) Vital Signs Temp Pulse Pulse Resp BP Pulse Ox 04/24/20 07:00 36.7 C 95 H 18 145/71 H 97 04/23/20 23:34 36.8 C 89 20 109/63 92 Laboratory Results Laboratory Tests 04/24/20 05:35 Hgb 8.0 L Hct 25.2 L
--- NOTE | 2020-04-24 19:28 | Discharge Summary ---
Date of Service April 24, 2020 Admission HPI Per Admitting Provider The patient is a 74-year-old gentleman presented to the office on 04/19/2020 for evaluation of a draining right lateral hip wound. He is status post previous right total hip arthroplasty by Dr. Batista approximately 5 years ago. He states he has had drainage from this hip now for several months and finally presents for evaluation. On exam, he had gross purulence from the lateral hip. He has x-ray changes consistent with osteolysis about the femoral stem concerning for deep infection. The patient has been admitted to the hospital for surgical excisional arthroplasty, implantation of antibiotic spacer, IV antibiotics, and eventually likely the need for surgical reimplantation. Principal Diagnosis Explant Right total hip, I+D, placement of antibiotic cement spacer -Right total hip periprosthetic joint infection Discharge Exam RLE NVSI +EHL/FHL/TA/GS SILT grossly, +2 DP pulse, compartments soft NT, dress ing cdi. Constitutional WD/WN, vitals as above Discharge Data Allergies Allergy/AdvReac Type Severity Reaction Status Date / Time No Known Allergies Allergy Unverified 09/12/17 11:08 Consultations 04/19/20 14:17 Consult Case Management - Discharge Planning Routine 04/19/20 18:15 Consult Hospitalist Routine 04/21/20 20:12 Consult Infectious Diseases Routine 04/22/20 08:00 Consult Case Management - Discharge Planning Routine Procedures Performed Operation Date: 04/21/20 08:15 Actual Procedures p Explant Right Total Hip Arthroplasty, and Placement Antibiotic Spacer(Right) - Rene Arias DO s Irrigation and Debridement(Right) - Rene Arias DO Hospital Course (1) Infection of right prosthetic hip joint: Hospital Course: On 04/21/20 the patient was taken to the operating room, adequate anesthesia administered and underwent a explant right total hip, I+D, placement of antibiotic cemener spacer. The patient tolerated the procedure well and was taken to the PACU in stable condition. Post-operatively the patient was started on a DVT ppx medication and given appropriate IV antibiotics. Consults were placed to medical hospitalist, ID, physical therapy, occupational therapy and case management. On POD#1, the patient did well overnight and their pain was well controlled. Labs were drawn and the Hgb was 6.8. Patient received 1 unit PRBC at this time. [facility] ID recommended continue with IV Vancomycin and started Ertapenem. Weekly labs, CBC, BMP, Vanc trough upon discharge. On POD#2, patient did well overnight, pain controlled, slightly hypotensive, labs drawn, Hgb 7.6, transfused 1 unit PRBC. On POD#3, the patient did well overnight, Drain was DC'd, patient progressed with PT, rec rehab however the patient declined. Labs were drawn, Hgb stable at 8.0. I/O cultures + for Enterococcus faciallis. The patients hospital stay was relatively uneventful and they were deemed stable by the orthopedic team and consultants to be discharged home with on 04/24/20. Patient declined rehab stay, therefore home health/nursing was set up for him. Discharge Instructions: Upon discharge the patient is to maintain partial 50% weight bearing through their operative extremity. They were instructed to keep the incision clean and dry at all times. The patient may shower but should not submerge the incision, avoid bathing, pools and hot tubes. The patient was given a script for pain medication and should take as instructed. The patient was given a script for DVT ppx Lovenox 40mg daily and should take as directed. The patient was instructed to not drive or travel for long distances until cleared to do so. If the patient develops any symptoms of fevers, chills, nausea, vomiting, increased redness, swelling, pain or drainage from the surgical site, they should notify the office and/or proceed to the nearest emergency room. The patient should follow up in 10-14 days after surgery for their routine post-operative follow-up appointment and should call the office to confirm the date and time. s/p Explant right total hip, I+D, placement of antibiotic cement spacer POD#3 -IV vanco/ertapenem per [facility] ID. Vanco changed to 1500 BID but will have trough done Saturday or Saturday for any potential changes. -DVT ppx: SCDs, TEDs, Lovenox daily -Partial WB RLE -PT/OT -PO XR demonstrates well aligned well fixed abx cement spacer, without fracture/dislocation -follow up IO cultures -ID consult -monitor drain output -am labs - as above, hgb 8.0 this AM after 1 unit yesterday. -DC planning--home today with home nursing. We discussed staying until the hemovac drainage has lessened but he has refused to stay stating, "People heal better at home, shahla." s/p Explant right total hip, I+D, placement of antibiotic cement spacer POD#2 -IV vanco/ertapenem per [facility] ID -DVT ppx: SCDs, TEDs, Lovenox daily -Partial WB RLE -PT/OT -PO XR demonstrates well aligned well fixed abx cement spacer, without fracture/dislocation -follow up IO cultures -ID consult -monitor drain output -am labs - as above, hgb 7.6 this AM after 1 unit yesterday. Will transfuse 1 unit today with possible d/c later today. -DC planning--possibly home today if Hgb improves and home IV tx is set up. s/p Explant right total hip, I+D, placement of antibiotic cement spacer POD#1 -IV vanco/cefepime -DVT ppx: SCDs, TEDs, Lovenox daily -Partial WB RLE -PT/OT -PO XR demonstrates well aligned well fixed abx cement spacer, without fracture/dislocation -follow up IO cultures -ID consult -monitor drain output - 75/485 -am labs - as above, hgb 6.8, receiving transfusion -DC planning Total Time Total Time Spent Total Time Spent (In Minutes): >60 Discharge Plan Discharge Items Patient Disposition: Home - Home Health Services Reason For Visit: SEPTIC RIGHT TOTAL HIP Discharge Diagnosis: Explant of right total hip, I+D, placement of antibiotic cement spacer -Right hip periprosthetic joint infection Condition on Discharge: Good Activity: Per Instructions section Lifting: Wait until after follow-up appointment Bathing: Keep incision dry Bathing Comment: No bathing, pools or hot tubs. Sexual Activity: Wait until after follow-up appointment Exercise/Sports: Wait until after follow-up appointment Driving/Machine Use: No driving Weightbearing: Right partial Weightbearing Comment: No more than 50% weight bearing Non-emergency contact: Primary Care Provider and Surgeon Call non-emergency contact if: you have any medication questions, your symptoms worsen, your pain is not controlled, your pain is worsening, your pain is unusual for you, your pain is concerning for you, you have a fever, your temperature is above 101, your wound has increased redness, your wound has increased drainage and your wound pain has increased Follow-up/Referrals: Irwin Arnold [Staff Physician] - Diet: Regular Addtl Attending Provider Instructions: ACTIVITY RECOMMENDATIONS: SELF CARE INSTRUCTIONS AFTER EXPLANT OF TOTAL HIP AND PLACEMENT OF ANTIBIOTIC CEMENT SPACER Due to antibiotic cement spacer you are at increased risk for hip dislocation A. Observe the following precautions to prevent dislocation: 1. Don't bend your hip greater than 90 degrees. 2. Avoid crossing your legs or ankles while standing or lying. 3. Sit with your feet placed 6 inches apart. 4. When sitting, keep your knees below your hips. Sit on a firm surface, avoid deep, soft chairs and couches. Use an elevated toilet seat in the bathroom. 5. Don't bend over at the waist. Use a long handled shoehorn and a sock aid to help you put on your shoes and socks. A decorating supervisor can help you cone picker objects that are too high or too low to reach. 6. Keep car riding to a minimum for at least one month after surgery. B. Your balance may be shaky for a while. Use a walker until directed by your doctor. Strict 50% weight bearing on right lower extremity C. Use hand rails when walking on stairs. D. Wear low heeled shoes with non-slip soles. E. Be sure that your floors are free of things that could trip you - throw rugs, electrical cords, small objects. Avoid wet and waxed floors, especially with crutches and canes. F. Try to walk several times a day with rest periods between. G. Continue with all the exercises taught to you in the hospital. Again, make walking a part of your daily routine. SPECIAL CARE INSTRUCTIONS: VERY IMPORTANT TO READ AND REVIEW A. You may still be at risk for phlebitis and blood clots. 1. Wear surgical stockings (SWETA hose) for 2 weeks after surgery to improve circulation and reduce swelling. 2. Take Lovenox 40mg daily for 4 weeks or as directed by your doctor. This is your blood thinner. 3. High risk patients may be prescribed a stronger blood thinner if necessary. 4. If you are on Coumadin normally, your family doctor/medical research scientist should monitor your blood work. Expect a phone call the day of or the day after bloodwork is drawn to adjust your dosage. B. Call [facility] if you have a fever, redness or swelling around the incision, cloudy drainage from incision, or sudden increase in pain in your hip, not relieved by your regular pain medication. C. Please call the office at if you have any concerns or questions about your operation or recovery. * YOU MAY SHOWER, NO TUB BATHS UNTIL CLEARED BY YOUR DOCTOR. * WEAR SWETA HOSE 20 HOURS PER DAY FOR 2 WEEKS. * MOST PATIENTS WILL HAVE HOME NURSING FOR THERAPY. IF YOU DECIDE TO DO OUTPATIENT PHYSICAL THERAPY, PLEASE SCHEDULE THIS 3 TIMES PER WEEK. *Nataliya incisional vac is a special dressing covering your incision. This dressing provides a sterile dry environment while you are healing. The dressing is to be left in place for 7 days post-operatively. Your home nurse or surgeon will remove. If you develop any redness or blisters or have any questions notify your surgeon immediately. *Will need weekly labs drawn, these include CBC, BMP and vancomycin trough, with goal between 15-20. FOLLOW UP VISIT: If appointment is not already scheduled: Please call [facility] to make a follow-up appointment for 2 weeks after your surgery at . Pending Studies at Discharge: No Stand-Alone Forms: My [employer], Smoking Cessation Medications and DC Order Prescriptions: New enoxaparin 40 mg/0.4 mL Syringe 40 mg subcut Q24H Qty: 28 RF: 0 acetaminophen 500 mg Tablet 1,000 mg PO Q8 PRN (Reason: Pain/fevers) Qty: 90 RF: 0 oxycodone 5 mg Tablet 5 mg PO Q6 MDD 4 PRN (Reason: pain) Qty: 30 RF: 0 sennosides [Senokot] 8.6 mg Tablet 17.2 mg PO HS PRN (Reason: constipation) Qty: 28 RF: 0 ertapenem 1 gram recon soln 1 g IM DAILY 42 Days Qty: 42 RF: 0 vancomycin 1.5 gram recon soln 1.5 g IV Q12H Qty: 84 RF: 0 Continued Simvastatin (Zocor) 40 MG tablet 40 mg PO QPM Qty: 0 RF: 0 Discharge Orders: Discharge Order (Routine); Ordered 04/24/20 Ordered By: Sarath Munoz/Other Patient Handouts: Preventing Deep Vein Thrombosis, Ertapenem injection, Vancomycin injection Admission Data Admit Date/Time: 04/19/20 18:00 Attending Provider: Rene Arias Admit Provider: Rene Arias Primary Care Provider: Artemio Choi Other Providers: Dick Strange ; Alexandr Marshall ; James Zapata ; Mitchel August ; Sharath Torres I. ; Vinny Thompson II ; Shana Sarabia ; Samson Murphy Other Interventions: Discharge Summary Assessment (RN) Last Done: 04/24/20 11:05
[2020-04-24] MEDS ORDERED: VANCOMYCIN HCL 1,500 MG in SODIUM CHLORIDE 0.9% 500 ML IV SCH (22:00)
== END 2020-04-24 17:02 | disposition home health service (06) | DRG 464 ==
LOC: 3W 18:00
PROC: M.IDHIP (2020-04-21 08:15)

== ENCOUNTER 2020-08-29 11:38 | Observation (INO) ==
--- NOTE | 2020-08-11 09:50 | PAT Medication Instructions ---
Medication Instructions Date of Service August 11, 2020 Home Medications Medication Instructions Recorded oxycodone 5 mg PO Q6 PRN #30 tab MDD 4 04/23/20 oxycodone 5 mg PO Q6 PRN simvastatin 40 mg PO PM Take morning of surgery With a small sip of water, OTHERWISE NOTHING TO EAT OR DRINK AFTER MIDNIGHT: oxycodone 5 mg PO Q6 PRN (okay to take up to 4 hours prior to surgery if needed) Take evening before surgery oxycodone 5 mg PO Q6 PRN (if needed) simvastatin 40 mg PO PM Other Notes If you have any questions please call us at [phone] or [phone] or [phone] or [phone]
--- NOTE | 2020-08-15 10:35 | Anesthesiology Consultation ---
Date of Service August 15, 2020 Assessment & Plan (1) Encounter for pre-operative examination: - Awaiting surgeon-ordered PCP clearance and infectious disease clearance. - S/P Left DUNIA: 10/10/17: SAB at L3-L4 at [facility] - S/P Right hip I&D, spacer insertion: 04/21/20: ETT 8.0 at [facility] - Per assessment on 08/15: Travel screen- Lives in [facility] [place]. Uses PPE. No known COVID-19 positive contacts or current COVID-19 related symptoms. Surgeon arranging preop COVID testing. Awaiting results. Chart Review Chart Review: Patient seen in Pre Admission Testing Teaching & Discussion Pre-Anesthesia Teaching/Discussion Notes: Instructed NPO after midnight before surgery,except medications with 15 cc of water. Medication instructions provided according to the PAT guidelines. History Surgery Operation Date: 08/29/20 09:30 Proposed Procedures p Right Hip Removal Antibiotic Spacer, Total Hip Revision Arthroplasty, Revision Antibiotic Cement Spacer, Irrigation and Debridement - Rene Arias, Height/Weight Height: 5 ft 11.5 in Weight: 86 kg Allergies Allergy/AdvReac Type Severity Reaction Status Date / Time No Known Allergies Allergy Verified 08/02/20 12:09 Medications Home Medications Medication Instructions Recorded Confirmed Last Taken oxycodone 5 mg PO Q6 PRN #30 tab MDD 4 04/23/20 08/02/20 Unknown simvastatin 40 mg PO PM 08/02/20 08/02/20 Unknown Past Medical History Medical History GERD (gastroesophageal reflux disease) History of blood transfusion acute blood loss anemia/blood transfusion post-op knee surgery (04/2020) Hyperlipidemia LBBB (left bundle branch block) noted on 04/19/20 EKG (with no significant change compared to 09/12/17 EKG per makeup instructor review, s/p unremarkable ECHO 09/17/17) Exercise / Class Metabolic Activity III < 4 Walking/Shop/Light housework (uses walker PRN) Past Surgical History Surgical History History of cataract surgery R/L History of hip surgery Right hip I&D, spacer insertion: 04/21/20: ETT 8.0 at [facility] History of total hip replacement R/L Left DUNIA: 10/10/17: SAB at L3-L4 at [facility] History of total knee replacement Right Past Anesthesia History No Hx of Anesthesia Complications and No Family Hx of Anesthesia Complications History of PONV No Hx of PONV and No Hx of Motion Sickness Social History Smoking Status: Never smoker Do You Dip or Chew Tobacco: No Hx Alcohol Use: No Hx Substance Use: No Review of Systems Patient denies chest pain, shortness of breath, fever, chills, reflux, cough, wheezing, palpitations. Physical Exam Vital Signs VITALS BP 129/77 P 84 TEMP 98.5 SP02 95%RA RESP 16 PHYSICAL Full neck and c-spine range of motion. Full TMJ range of motion. TMD 3 finger breaths Mallampati Score 2 Dentition: full upper denture, + several missing teeth on lower (approximately 7 remaining per patient) Lungs: clear throughout to auscultation Cardiac: regular rate and rhythm, I-II/ systolic murmur Spine: normal Carotid arteries: negative bruit Extremities: no edema Testing Laboratory Results 08/15/20 10:48 08/15/20 10:48 PT 10.5 Seconds (9.0-12.0) 08/15/20 10:48 INR 1.0 (0.9-1.1) 08/15/20 10:48 APTT 28.4 Seconds (21.0-31.0) 08/15/20 10:48 Hemoglobin A1c 5.5 % (4.5-5.6) 08/15/20 10:48 Urine Color Yellow 08/15/20 10:48 Urine Appearance Clear (Clear) 08/15/20 10:48 Urine pH 5.0 (4.5-7.5) 08/15/20 10:48 Ur Specific [place] 1.022 (1.000-1.030) 08/15/20 10:48 Urine Protein Negative (Negative) 08/15/20 10:48 Urine Glucose (UA) Negative (Negative) 08/15/20 10:48 Urine Ketones Trace (Negative) H 08/15/20 10:48 Urine Nitrite Negative (Negative) 08/15/20 10:48 Ur Leukocyte Esterase Negative (Negative) 08/15/20 10:48 Blood Type A Positive 08/15/20 10:48 Antibody Screen NEGATIVE 08/15/20 10:48 Electrocardiogram Date: 04/19/20 SR with occasional PAC's. LBBB. (no significant change compared to 09/12/17 EKG per makeup instructor review, s/p unremarkable ECHO 09/17/17) Chest X-Ray Date: 04/19/20 FINDINGS: PA and lateral chest radiographs are compared to study dated 09/12/2017. The cardiomediastinal silhouette is unremarkable noting atherosclerotic calcification of the thoracic aorta. There is chronic elevation of the right hemidiaphragm with bibasilar scarring/atelectasis. Chronic interstitial thickening is similar to previous. No airspace consolidation or pleural effusion is identified. There is no pneumothorax. The skeletal structures are osteopenic. The bony thorax appears intact. Advanced arthritic change and deformity is present in both shoulders. Degenerative change is also seen in the thoracic spine. IMPRESSION: Chronic parenchymal changes as above with no active disease in the chest. Echocardiogram Date: 09/17/17 EF 50-55%. Mild AI, trace TR. mildly dilated aortic root.
[2020-08-15 11:31] LABS: Basophils # (auto) 0.02 K/uL (0-0.2); Basophils % (auto) 0.4 %; Eosinophils # (auto) 0.08 K/uL (0-0.5); Eosinophils % (auto) 1.5 %; Hematocrit (blood only) 37.4 % (42-52); Hemoglobin 11.9 g/dL (14.0-18.0); Lymphocytes # (auto) 1.39 K/uL (1.2-3.4); Lymphocytes % (auto) 26.4 %; Mean Corpuscular Hemoglobin 25.5 pg (25-34); Mean Corpuscular Hgb Conc 31.8 g/dL (32-36); Mean Corpuscular Volume 80.1 fL (80-100); Mean Platelet Volume 10.3 fL (7.4-10.4); Monocytes # (auto) 0.36 K/uL (0.11-0.59); Monocytes % (auto) 6.8 %; Neutrophils # (auto) 3.42 K/uL (1.4-6.5); Neutrophils % (auto) 64.9 %; Platelet Count 191 K/uL (130-400); Red Blood Count 4.67 M/uL (4.7-6.1); White Blood Count 5.27 K/uL (4.8-10.8)
[2020-08-15 11:34] LABS: Appearance Urine Clear (Clear); Bilirubin Urine Negative (Negative); Blood Urine Negative (Negative); Color Urine Yellow; Glucose Urine UA Negative (Negative); Ketones Urine Trace (Negative); Leukocyte Esterase Urine Negative (Negative); Nitrite Urine Negative (Negative); Protein Urine Negative (Negative); Specific Gravity Urine 1.022 (1.000-1.030); Urobilinogen Urine Negative (Negative)
[2020-08-15 11:41] LABS: Albumin Level 3.5 gm/dl (3.4-5.0); BUN Creatinine Ratio 17.8 (10-20); C Reactive Protein 0.72 mg/dl (0-0.29); Calcium 8.6 mg/dl (8.5-10.1); Creatinine Clr Calc Pharmacy 66.9 ml/min; Est GFR (African American) 83.8; Est GFR (Non-African American) 72.3; Potassium 4.4 mmol/L (3.5-5.1)
[2020-08-15 11:42] LABS: Partial Thromboplastin Time 28.4 Seconds (21.0-31.0); Prothrombin Time 10.5 Seconds (9.0-12.0)
[2020-08-15 11:47] LABS: Estimated Average Glucose 111 mg/dl; Hemoglobin A1C 5.5 % (4.5-5.6)
[2020-08-15 12:00] LABS: Anisocytosis Present; Ovalocytes 1+
--- NOTE | 2020-08-28 12:23 | History & Physical Report ---
Date of Service August 29, 2020 Assessment & Plan (1) Infection of prosthetic total hip joint: I have indicated the patient for removal of antibiotic cement spacer and revision right total hip replacement vs repeat I+D, articulating antibiotic cement spacer pending intraoperative labs/frozen sections. The risks, benefits and complications of surgery were explained to the patient which include but not limited to infection, acute blood loss, DVT/PE, injury to nerves, vessels, bone, soft tissue, arthrofibrosis, chronic pain, failure of the prosthesis, hip dislocation, leg length discrepancy, need for additional surgery, cardiac and pulmonary events and . The patient wished to proceed with surgery and informed consent was obtained at this time. We will plan for Lovenox post-op eratively for DVT prophylaxis. Upon discharge the patient will be discharged home with home health services. Appropriate clearances by PCP, ID recommendations were obtained. 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 The patient has significant past surgical history and is status post explant right total hip and placement of antibiotic cement spacer and I&D performed 04/21/2020. Patient completed IV antibiotic course in 2-week antibiotic holiday, underwent arthrocentesis of his right hip on 06/20/2020. Unfortunately only a small amount of fluid was obtained and the patient could only have cultures performed which were negative. I discussed the lack of full set of labs and lack of inflammatory labs with the patient in detail. I reviewed x-rays of the right hip with marker ball which demonstrated a well aligned well fixed articulating antibiotic cement spacer without fracture dislocation. Patient has not been obtaining weekly lab draws due to lack of transportation he reports. Previous inflammatory labs were trending down. We will obtain new labs prior to surgery. Patient is ready to schedule revision right total hip arthroplasty. I explained to the patient in detail that the absence of the labs and inability to get a full set of labs for his right hip arthrocentesis, definitive revision right total hip arthroplasty will not be determined until intra-operative labs and frozen tissue samples are obtained. I have indicated the patient for revision right total hip arthroplasty and removal of antibiotic cement spacer versus revision right antibiotic cement spacer and I&D. Allergies Allergy/AdvReac Type Severity Reaction Status Date / Time vancomycin Allergy Mild Rash Verified 08/29/20 12:38 Home Medications Medication Instructions Recorded Confirmed Type oxycodone 5 mg PO Q6 PRN #30 tab MDD 4 04/23/20 08/29/20 Rx simvastatin 40 mg PO PM 08/02/20 08/29/20 History Past Med/Surg History Medical History GERD (gastroesophageal reflux disease) History of blood transfusion acute blood loss anemia/blood transfusion post-op knee surgery (04/2020) Hyperlipidemia LBBB (left bundle branch block) noted on 04/19/20 EKG (with no significant change compared to 09/12/17 EKG per automatic lathe setter review, s/p unremarkable ECHO 09/17/17) Surgical History History of cataract surgery R/L History of hip surgery Right hip I&D, spacer insertion: 04/21/20: ETT 8.0 at [facility] History of total hip replacement R/L Left DUNIA: 10/10/17: SAB at L3-L4 at [facility] History of total knee replacement Right Social History Smoking Status: Never smoker Second Hand Exposure: No; Do You Dip or Chew Tobacco: No; Hx Alcohol Use: No Hx Substance Use: No Preferred Language: Nepali Communication Ability: Effective Business Continuity Specialist Required: No Beliefs That Will Affect Care: None Current Living Situation: Alone Other Information That Helps Us Care for You: No Feels Safe at Home: Yes Safety Concerns: Feels Safe At This Time Assistive Devices: Denture - Upper, Glasses and Walker Review of Systems Review of Systems: All systems reviewed & are unremarkable except as noted in HPI & below Constitutional: as per Subjective / HPI Physical Exam 2 Physical Exam: RLE NVSI +EHL/FHL/TA/GS SILT grossly, +2 DP pulse, compartments soft NT, limited ROM, incision CDI Constitutional: WD/WN, vitals as above Eyes: PERRL, conjunctivae normal, anicteric sclerae ENMT: external ear and nose normal, oropharynx normal Neck: trachea midline, no thyromegaly Respiratory: normal respiratory effort, lungs clear to auscultation Cardiovascular: RRR, no murmur, no edema Gastrointestinal (Abdomen): normal bowel sounds, soft, nontender, no hepatosplenomegaly Musculoskeletal: no cyanosis or clubbing, extremities motor strength 5/5 Skin: no rashes, warm and dry Neurologic: patellar DTR's 2+ bilat, sensation intact Psychiatric: A+Ox3, euthymic affect Lymphatic: no cervical or axillary lymphadenopathy Results & Data Results & Data ([facility]) Diagnostic Findings Multiple views of the right hip demonstrate a well aligned well fixed articulating antibiotic cement spacer without fracture/dislocation Pre Admission Testing Addendum Laboratory Results 08/15/20 10:48 08/15/20 10:48 PT 10.5 Seconds (9.0-12.0) 08/15/20 10:48 INR 1.0 (0.9-1.1) 08/15/20 10:48 APTT 28.4 Seconds (21.0-31.0) 08/15/20 10:48 Hemoglobin A1c 5.5 % (4.5-5.6) 08/15/20 10:48 Urine Color Yellow 08/15/20 10:48 Urine Appearance Clear (Clear) 08/15/20 10:48 Urine pH 5.0 (4.5-7.5) 08/15/20 10:48 Ur Specific [place] 1.022 (1.000-1.030) 08/15/20 10:48 Urine Protein Negative (Negative) 08/15/20 10:48 Urine Glucose (UA) Negative (Negative) 08/15/20 10:48 Urine Ketones Trace (Negative) H 08/15/20 10:48 Urine Nitrite Negative (Negative) 08/15/20 10:48 Ur Leukocyte Esterase Negative (Negative) 08/15/20 10:48 Blood Type A Positive 08/15/20 10:48 Antibody Screen NEGATIVE 08/15/20 10:48 08/15/20 08:19 Urine Culture - Final Urine,Clean Catch No growth - less than 1,000 colonies/mL. ESR 39 CRP 0.72
[~2020-08-29 11:38] MED LIST changes: -CEFAZOLIN 2000MG IV PUSH 15 ML IV SCH; -DEXAMETHASONE 4 MG TAB PO SCH; -GABAPENTIN 300 MG CAP PO SCH; -LACTATED RINGER'S 1000ML 1,000 ML IV SCH; -LACTATED RINGER'S 1000ML 500 ML IV SCH; +LR 500ML BOLUS, THEN 15ML/HR IV SCH; -METOCLOPRAMIDE HCL 10 MG TAB PO SCH; +METOCLOPRAMIDE HCL 10 MG TABLET PO SCH; -NUTR-7 PO; -OXYC-106 PO; -PRLSR20 PO; +ROPIVACAINE 0.5% HCL/PF 150 MG, BUPIVACAINE 0.75% MPF 20 ML, EPINEPHrine 30MG/30ML (OR ... INSTIL SCH; -ROPIVACAINE 5MG/ML 30 ML 150 MG, BUPIVACAINE 0.5% MPF INJ 30 ML, EpINEphrine HCL INJ 0.... INFIL SCH; -SIMV40TA2 PO; +TRANEXAMIC ACID 1,000 MG **IV Intra-op IV SCH; +TRANEXAMIC ACID 1,000 MG **IV Pre-op IV SCH; +VANCOMYCIN HCL 1,250 MG in SODIUM CHLORIDE 0.9% 250 ML IV SCH; +ceFAZolin 2000MG 2,000 MG/15 ML SYR IV SCH; +dexAMETHasone 4 MG TAB PO SCH
[2020-08-29] MEDS ORDERED: CLINDAMYCIN 900 MG in DEXTROSE 5% 50 ML IV SCH (13:00)
[2020-08-29] MEDS ORDERED: MIDAZOLAM HCL 1 MG/ML 2ML VIAL ONE (13:07)
[2020-08-29] MEDS ORDERED: PROPOFOL IV EMULSION 10 MG/ML 20 ML VIAL IV ONE ×3 (13:09→16:46)
--- NOTE | 2020-08-29 13:47 | History & Physical Bridge Note ---
Date of Service August 29, 2020 History & Physical Bridge Note I have examined the patient, reviewed the History & Physical and in the interval since the performance of the History & Physical I have noted the following changes of clinical significance: no changes noted
[2020-08-29] MEDS ORDERED: ePHEDrine sulfate 50 MG/ML AMP IV PRN (13:49)
[2020-08-29] MEDS ORDERED: HYDROmorphone INJ 1 MG/ML SYRINGE IV PRN (13:49)
[2020-08-29] MEDS ORDERED: ONDANSETRON INJ 2 MG/ML 2 ML VIAL IV PRN ×2 (13:49→18:45)
[2020-08-29] MEDS ORDERED: ATROPINE SULFATE 0.1 MG/ML 10ML SYR IV PRN (13:49)
[2020-08-29] MEDS ORDERED: KETOROLAC 30 MG/ML VIAL IV PRN (13:49)
[2020-08-29] MEDS ORDERED: BACITRACIN INJ 50,000 UNIT VIAL ONE (14:12)
[2020-08-29] MEDS ORDERED: ORTHO JOINT ANESTHETIC ONE (14:12)
[2020-08-29] MEDS ORDERED: ePHEDrine sulfate 50 MG/ML SYR ONE (14:36)
[2020-08-29] MEDS ORDERED: PHENYLEPHRINE 100MCG/ML 5ML SYR ONE (14:36)
[2020-08-29] MEDS ORDERED: PHENYLEPHRINE HCL 10 MG/ML VIAL ONE (15:07)
[2020-08-29 16:10] LABS: Appearance Synovial Fluid BLOODY; Color Synovial Fluid RED; Mononuclear WBC Synovial 31.6 %; Polynuclear WBC Synovial 68.4 %; RBC Synovial Fluid (A) 1186000 /uL; Source Synovial Fluid HIP; WBC Synovial Fluid (A) 1007 /ul (0-200)
[2020-08-29 16:37] LABS: Hematocrit (blood only) 32.1 % (42-52); Hemoglobin 10.5 g/dL (14.0-18.0)
--- NOTE | 2020-08-29 17:23 | Post Operative Brief Note ---
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 Revision right total hip arthroplasty - Rene Arias DO 2. Explant right hip antibiotic cement spacer 3. Irrigation and Debridement(Right) 4. Revision of surgical scar Surgeon Rene Arias DO Coffee Maker Jhonathan Gongora Estimated Blood Loss 775 Findings Consistent with Post-Op Diagnosis Fluids 2.5 cc LR 900 cc urine out Specimens Synovial fluidGram stain, cell count, culture Fresh frozen section x5 deep to fascia Drains Orr Catheter and Hemovac Drain Anesthesia Type Spinal MAC Complications none Disposition Disposition: Recovery Room Overlapping Procedure I was present for: the critical portions of procedure. I was immediately available: during the entire case. Back up surgeon: was not required during procedure.
--- NOTE | 2020-08-29 17:24 | Operative Report ---
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 Revision right total hip arthroplasty - Rene Arias DO 2. Explant right hip antibiotic cement spacer 3. Irrigation and Debridement(Right) 4. Revision of surgical scar Surgeon Rene Arias DO Programmer [employer] Jhonathan Gongora Estimated Blood Loss 775 Findings Consistent with Post-Op Diagnosis Fluids 2.5 cc LR 900 cc urine out Specimens Synovial fluidcell count, Gram stain, culture Fresh frozen section x5 Drains Hemovac drains deep to fascia Anesthesia Type Spinal MAC Complications none Disposition Disposition: Recovery Room Indications Patient is a 75-year-old male who presents for preoperative appointment for revision right total hip arthroplasty versus repeat I&D and revision antibiotic cement spacer scheduled for 08/29/2020. The patient has significant past surgical history and is status post explant right total hip and placement of antibiotic cement spacer and I&D performed 04/21/2020. Patient completed IV antibiotic course in 2-week antibiotic holiday, underwent arthrocentesis of his right hip on 06/20/2020. Unfortunately only a small amount of fluid was obtained and the patient could only have cultures performed which were negative. I discussed the lack of full set of labs and lack of inflammatory labs with the patient in detail. I reviewed x-rays of the right hip with marker ball which demonstrated a well aligned well fixed articulating antibiotic cement spacer without fracture dislocation. Patient has not been obtaining weekly lab draws due to lack of transportation he reports. Previous inflammatory labs were trending down. We will obtain new labs prior to surgery. Patient is ready to schedule revision right total hip arthroplasty. I explained to the patient in detail that the absence of the labs and inability to get a full set of labs for his right hip arthrocentesis, definitive revision right total hip arthroplasty will not be determined until intra-operative labs and frozen tissue samples are obtained. I have indicated the patient for revision right total hip arthroplasty and removal of antibiotic cement spacer versus revision right antibiotic cement spacer and I&D. I have indicated the patient for removal of antibiotic cement spacer and revision right total hip replacement vs repeat I+D, articulating antibiotic cement spacer pending intraoperative labs/frozen sections. The risks, benefits and complications of surgery were explained to the patient which include but not limited to infection, acute blood loss, DVT/PE, injury to nerves, vessels, bone, soft tissue, arthrofibrosis, chronic pain, failure of the prosthesis, hip dislocation, leg length discrepancy, need for additional surgery, cardiac and pulmonary events and . The patient wished to proceed with surgery and informed consent was obtained at this time. We will plan for Lovenox post- operatively for DVT prophylaxis. Upon discharge the patient will be discharged home with home health services. Appropriate clearances by PCP, ID recommendations were obtained. Description of Procedure COMPONENTS USED: Esthela [employer] hip system: Acetabulum size 64 G7 osteo-ti, femur size 96893 Olivia one-piece high offset, femoral head 36-3, liner 6436, acetabular screws 30 mm and 25mm. Following induction of adequate spinal anesthesia, the patient was transferred to the OR table and placed in lateral decubitus position with left hip down. The right hip was prepped and draped in the typical sterile fashion. A timeout was performed, patient identified, site laura verified and appropriate IV antibiotics given. A posterolateral/Jess-Langenbeck incision was made inline with the previous incision. Excision of previous scar was performed. Subcutaneous tissue was sharply dissected. Electrocautery and Aquamantys was utilized for hemostasis. The fascia was incised throughout the length of the wound and retracted with the Charnley retractor. The short external rotators and capsule were scared in and were divided from the posterior aspect of the femur using electrocautery. Both external rotators and posterior capsule were swept posterior and protected, along with protecting the sciatic nerve. A small amount of serosanguineous joint fluid was appreciated, synovial fluid was obtained and sent for further analysis including cell count. Antibiotic cement spacer was identified and in good shape/position. Deep and superficial soft tissues were closely inspected, and found to be healthy appearing, clean, no evidence of infectious/inflammatory process. No sinus tracts or ronnell pus. Meticulous removal of intra-articular scar tissue was performed with bovie. Five fresh frozen tissue samples were obtained and sent for analysis. The hip prosthesis was dislocated by flexion and internal rotation in a controlled manner. The femoral head was removed from the trunion. Next utilizing artisan chisel the cement collar was meticulously removed. Flexible osteotomes were inserted anterior/posterior and lateral to the stem. Next, the stem extraction device was placed and the stem was easily removed in it's entirety without loss of bone or fracture. Utilizing large curets, IM soft tissue and membrane was debrided and the canal was irrigated with copious amounts of sterile saline solution with bacitracin. Next, access was gained to the acetabulum. Meticulous removal of scar tissue surrounding the cup was performed. Once satisfied, utilizing artisan chisels, the polyetheline liner was dislodged from the cement mantle. Meticulous removal of remaining cement was performed without bone loss. A this time a thorough debridement of the deep and superficial soft tissue was performed with scalpel, Bovie, curets and [place] elevator. Soft tissue planes were well defined. The hip joint was irrigated with copious amounts of sterile saline with bacitracin. Synovial fluid analysis resulted no pathogens on gram stain and a cell count of 1007. Fresh frozen sections demonstrated no acute inflammation, less than 5 PMNs per hpf. At this time we proceeded with revision right total hip arthroplasty. Access was once more gained to the acetabulum and sequential reaming was performed starting at 58mm and carried up to 63 mm and decision was made to proceed with impaction of a 64 mm G7 osteoTi cup. The cup was impacted in to place and held using two acetabular screws measuring 30mm and 25mm. The trial 64/36 acetabular liner was inserted and locked into place at this time. Next, attention was turned back to the proximal femur. Distal reaming was performed by hand to a depth of 175 mm and increased sequentially until good bone chatter was appreciated to a final size 20 mm. Next, sequentially rasping was carried up to a size 20 which gave good fit and fill of the proximal femur. A 36 -3 femoral head was placed onto the stem and a trial reduction was carried out. The hip was found to be stable in all degrees of rotation with hip flexion and extension with no impingement and leg lengths were equal. The hip was dislocated once more, trial components were removed and access to the acetabulum was re-established. The trial liner was removed and the cup was irrigated to ensure all debris was removed. A final 64x36 mm high wall acetabular liner was inserted and impacted into place. Access to the proximal femur was once more gained and the size 58554 Olivia 1 piece femoral stem with high offset was impacted into position. Care was taken to ensure appropriate version was obtained. A trial 36-3 femoral head was placed and trial reduction was once more performed. The hip was found to be stable in all degrees of rotation with hip flexion and extension with no impingement and leg lengths were equal. The hip was dislocated once more, the neck was cleaned of all debris, a final 36-3 femoral head impacted into place and the hip was reduced. Range of motion was checked once again and found to be stable. The wound was copiously irrigated with sterile saline solution with bacitracin. Utilizing a mixture of 20cc of Betadine in 500cc of sterile saline solution the hip joint was soaked for 3 minutes. The hip was once again irrigated with copious amounts of sterile saline solution with bacitracin, 6L in total. The raphael-incisional soft tissue was injected utilizing [place] ortho mix which includes a combination of Ropivicaine 0.5% 150mg, Bupivicaine 0.5%/Epinephrine 1:200,000 30ml, Toradol 30mg, Dexamethasone 4mg, Ketamine 10mg, Clonidine 100mcg and NSS 30ml solution. Hemovac drain was placed deep to the fascial layer. Deep tissues and fascia were closed using #1 Vicryl. A second hemavac drain was placed superficial to the fascial layer. Subcutaneous tissue was closed using 2-0 Vicryl, and skin was closed with edward. Sterile dressings were applied which included Prevena incisional vac. A abduction pillow was placed between the legs. The patient tolerated the procedure well and was transported to PACU in stable condition. Due to the complex nature of the procedure, the entire surgery was performed with the operational assistance of Jhonathan Gongora PA-C. The election assistant, under direct supervision, was involved in the actual performance of all aspects of the surgical procedure including patient positioning, hemostasis, tissue retraction, instrument management and wound closure. I attest to the content of the Intraoperative Record and any orders documented therein. Any exceptions are noted below.
[2020-08-29 18:28] LABS: Hematocrit (blood only) 29.4 % (42-52); Hemoglobin 9.6 g/dL (14.0-18.0)
--- NOTE | 2020-08-29 18:31 | Orthopedic Progress Note ---
Date of Service August 29, 2020 Assessment & Plan (1) Infection of prosthetic total hip joint: s/p explant abx spacer, revision right DUNIA -clinda x 48 -DVT ppx: SCDs, TEDs, Lovenox daily -WBAT RLE -PT/OT -PO XR demonstrates a well aligned well fixed prosthesis without fracture/dislocation -am labs -DC planning Subjective Post Operative Progress Note Patient seen sitting up in bed, comfortable, denies complaints, pain well controlled, no acute issues. Review of Systems Review of Systems: All systems reviewed & are unremarkable except as noted in HPI & below Constitutional: as per Subjective / HPI Physical Exam Physical Exam: Right LE PE limited secondary to spinal anesthesia, +2 DP pulse, compartment soft NT, dressing cdi, HMV drain intact. Constitutional: WD/WN, vitals as above Results & Data ([facility]) Vital Signs (Past 12 Hours) Vital Signs Temp Pulse Pulse Resp BP BP Pulse Ox 08/29/20 18:20 81 19 92/58 L 100 08/29/20 18:00 86 20 90/54 L 99 08/29/20 17:54 36.6 C 90 22 92/57 L 100 08/29/20 12:52 36.7 C 92 H 20 155/84 H 98 08/29/20 12:10 36.4 C L 91 H 18 169/79 H 99
--- NOTE | 2020-08-29 18:32 | XRay Report ---
XR hip 1V RT w pelvis CLINICAL HISTORY: Postop hip arthroplasty COMPARISON: 04/21/2020 DISCUSSION: There is evidence of a total right hip arthroplasty revision. There is no dislocation. Th ere are no acute fractures. There are overlying skin edward and surgical drains. There is gas within the soft tissues consistent with recent surgery. Also evident is an old left total hip arthroplasty. IMPRESSION: Postsurgical changes of a total right hip arthroplasty revision. ACT 112: Negative or not required by law. Electronically signed by: Anatoliy Salgado M.D. 08/29/2020 6:30 PM
--- NOTE | 2020-08-29 18:38 | Anesthesiology Progress Note ---
Date of Service August 29, 2020 Anesthesia Post Procedure Vital Signs Vital Signs: Temp Pulse Pulse Resp BP BP Pulse Ox 08/29/20 18:30 91 H 13 101/67 97 08/29/20 18:20 81 19 92/58 L 100 08/29/20 18:00 86 20 90/54 L 99 08/29/20 17:54 36.6 C 90 22 92/57 L 100 08/29/20 12:52 36.7 C 92 H 20 155/84 H 98 08/29/20 12:10 36.4 C L 91 H 18 169/79 H 99 Pain Intensity Right Hip: Pain Intensity: 2 Transfer of Care Handoff Completed per policy Notes Mental Status: alert / awake / arousable Patient Amnestic to Procedure: Yes Nausea / Vomiting: adequately controlled Pain: adequately controlled Airway Patency, RR, SpO2: stable & adequate BP & HR: stable & adequate Hydration State: stable & adequate Neuraxial Anesthesia: was administered and sensory block is resolving Anesthetic Complications: no major complications apparent and Pt Satisfied with anesthetic care Notes: The patient is awake and comfortable. His vital signs are stable. Postop hgb is 9.6.
[2020-08-29] MEDS ORDERED: diphenhydrAMINE Capsule 25 MG CAP PO PRN (18:45)
[2020-08-29] MEDS ORDERED: NALOXONE HCL 0.4 MG/1 ML VIAL/CARP IV PRN (18:45)
[2020-08-29] MEDS ORDERED: SODIUM CHLORIDE 0.9% 1000ML 1,000 ML IV SCH (18:45)
[2020-08-29] MEDS ORDERED: bisacodyL 10 MG SUPP PR PRN (18:45)
[2020-08-29] MEDS ORDERED: MAGNESIUM HYDROXIDE SUSP 30 ML UDC PO PRN (18:45)
[2020-08-29] MEDS ORDERED: METOCLOPRAMIDE HCL INJ 5 MG/ML 2 ML VIAL IV PRN (18:45)
[2020-08-29] MEDS: HYDROmorphone INJ 0.5 MG/0.5 ML SYR IV PRN ×2 (19:50→23:31)
[2020-08-29] MEDS: SIMVASTATIN 40 MG TAB PO SCH (20:23)
[2020-08-29] MEDS: SENNA 8.6 MG TAB PO SCH (20:23)
[2020-08-29] MEDS: DOCUSATE SODIUM 100 MG CAP PO SCH (20:23)
[2020-08-29] MEDS: CLINDAMYCIN 900 MG in DEXTROSE 5% 50 ML IV SCH (21:42)
[2020-08-29] MEDS: ACETAMINOPHEN 500 MG TAB PO SCH (21:43)
[2020-08-29] MEDS: oxyCODONE HCL IR 5 MG TAB (IMMEDIATE RELEASE) PO PRN (21:44)
[2020-08-30] MEDS: oxyCODONE HCL IR 5 MG TAB (IMMEDIATE RELEASE) PO PRN ×2 (02:08→08:56)
[2020-08-30] MEDS: CLINDAMYCIN 900 MG in DEXTROSE 5% 50 ML IV SCH ×3 (05:36→21:05)
[2020-08-30] MEDS: ACETAMINOPHEN 500 MG TAB PO SCH ×3 (05:37→21:09)
[2020-08-30] MEDS ORDERED: CLINDAMYCIN PHOS 900 MG/6 ML VIAL IV SCH (06:00)
[2020-08-30 06:06] LABS: Hematocrit (blood only) 24.6 % (42-52); Hemoglobin 8.1 g/dL (14.0-18.0); Lymphocytes # (auto) 0.49 K/uL (1.2-3.4); Lymphocytes % (auto) 5.7 %; Mean Corpuscular Hemoglobin 26.3 pg (25-34); Mean Corpuscular Hgb Conc 32.9 g/dL (32-36); Mean Corpuscular Volume 79.9 fL (80-100); Mean Platelet Volume 9.2 fL (7.4-10.4); Monocytes # (auto) 0.32 K/uL (0.11-0.59); Monocytes % (auto) 3.7 %; Neutrophils # (auto) 7.81 K/uL (1.4-6.5); Neutrophils % (auto) 90.6 %; Platelet Count 137 K/uL (130-400); RDW Coefficient of Variation 19.1 % (11.5-14.5); RDW Standard Deviation 56.3 fL (36.4-46.3); Red Blood Count 3.08 M/uL (4.7-6.1); White Blood Count 8.62 K/uL (4.8-10.8)
[2020-08-30 06:34] LABS: BUN Creatinine Ratio 23.4 (10-20); Calcium 7.4 mg/dl (8.5-10.1); Creatinine Clr Calc Pharmacy 76.9 ml/min; Est GFR (African American) 96.5; Est GFR (Non-African American) 83.2; Potassium 4.7 mmol/L (3.5-5.1)
[2020-08-30] MEDS: MULTIVITAMIN TAB PO SCH (08:54)
[2020-08-30] MEDS: DOCUSATE SODIUM 100 MG CAP PO SCH ×2 (08:55→21:08)
[2020-08-30] MEDS: ENOXAPARIN INJ 40 MG/0.4 ML SYR SQ SCH (08:57)
--- NOTE | 2020-08-30 10:38 | Orthopedic Progress Note ---
Date of Service August 30, 2020 Assessment & Plan (1) Infection of prosthetic total hip joint: s/p explant abx spacer, revision right DUNIA POD#1 -clinda x 48 -DVT ppx: SCDs, TEDs, Lovenox daily -WBAT RLE -PT/OT -PO XR demonstrates a well aligned well fixed prosthesis without fracture/dislo cation -am labs - as above, hgb 8.1 -IO culture negative x 24h -HMV drain - 75/220cc -DC planning Admission and Anticipated Discharge Date Admission Date: August 29, 2020 Subjective Post Operative Progress Note Patient seen sitting in chair at bedside, comfortable, denies complaints, pain well controlled, no acute issues. Denies F/C/N/V/SOB/CP. Review of Systems Review of Systems: All systems reviewed & are unremarkable except as noted in HPI & below Constitutional: as per Subjective / HPI Physical Exam Physical Exam: RLE NVSI +EHL/FHL/TA/GS SILT grossly, +2 DP pulse, compartments soft NT, dressing cdi. Drain intact Constitutional: WD/WN, vitals as above Results & Data ([facility]) Vital Signs (Past 12 Hours) Vital Signs Temp Pulse Resp BP Pulse Ox 08/30/20 07:40 36.5 C 86 16 101/60 94 08/30/20 03:00 36.4 C L 82 18 98/63 L 95 Laboratory Results 08/30/20 08/30/20 08/29/20 Range/Units 05:51 05:51 18:20 WBC 8.62 (4.8-10.8) K/uL RBC 3.08 L (4.7-6.1) M/uL Hgb 8.1 L 9.6 L (14.0-18.0) g/dL Hct 24.6 L 29.4 L (42-52) % MCV 79.9 L (80-100) fL MCH 26.3 (25-34) pg MCHC 32.9 (32-36) g/dL RDW Std Deviation 56.3 H (36.4-46.3) fL RDW Coeff of Lori 19.1 H (11.5-14.5) % Plt Count 137 (130-400) K/uL MPV 9.2 (7.4-10.4) fL Immature Gran % (Auto) 0.0 % Neut % (Auto) 90.6 % Lymph % (Auto) 5.7 % [place] % (Auto) 3.7 % Eos % (Auto) 0.0 % Baso % (Auto) 0.0 % Neut # (Auto) 7.81 H (1.4-6.5) K/uL Lymph # (Auto) 0.49 L (1.2-3.4) K/uL [place] # (Auto) 0.32 (0.11-0.59) K/uL Eos # (Auto) 0.00 (0-0.5) K/uL Baso # (Auto) 0.00 (0-0.2) K/uL Immature Gran # (Auto) 0.00 (0.00-0.02) K/uL Sodium 138 (136-145) mmol/L Potassium 4.7 (3.5-5.1) mmol/L Chloride 106 (98-107) mmol/L Carbon Dioxide 26 (21-32) mmol/L Anion Gap 6.0 (3-11) BUN 20 H (7-18) mg/dl Creatinine 0.87 (0.6-1.4) mg/dl Est Cr Clr Drug Dosing 76.9 ml/min Est GFR ( Amer) 96.5 Est GFR (Non-Af Amer) 83.2 BUN/Creatinine Ratio 23.4 H (10-20) Glucose 135 H (70-99) mg/dl Calcium 7.4 L (8.5-10.1) mg/dl Synovial Source Synovial Color Synovial Appearance Synovial WBC (0-200) /ul Synovial RBC /uL Synovial Polynuclear % % Synovial Mononuclear % % Blood Type Antibody Screen Crossmatch 08/29/20 08/29/20 08/29/20 Range/Units 16:30 15:17 11:52 WBC (4.8-10.8) K/uL RBC (4.7-6.1) M/uL Hgb 10.5 L (14.0-18.0) g/dL Hct 32.1 L (42-52) % MCV (80-100) fL MCH (25-34) pg MCHC (32-36) g/dL RDW Std Deviation (36.4-46.3) fL RDW Coeff of Lori (11.5-14.5) % Plt Count (130-400) K/uL MPV (7.4-10.4) fL Immature Gran % (Auto) % Neut % (Auto) % Lymph % (Auto) % [place] % (Auto) % Eos % (Auto) % Baso % (Auto) % Neut # (Auto) (1.4-6.5) K/uL Lymph # (Auto) (1.2-3.4) K/uL [place] # (Auto) (0.11-0.59) K/uL Eos # (Auto) (0-0.5) K/uL Baso # (Auto) (0-0.2) K/uL Immature Gran # (Auto) (0.00-0.02) K/uL Sodium (136-145) mmol/L Potassium (3.5-5.1) mmol/L Chloride (98-107) mmol/L Carbon Dioxide (21-32) mmol/L Anion Gap (3-11) BUN (7-18) mg/dl Creatinine (0.6-1.4) mg/dl Est Cr Clr Drug Dosing ml/min Est GFR ( Amer) Est GFR (Non-Af Amer) BUN/Creatinine Ratio (10-20) Glucose (70-99) mg/dl Calcium (8.5-10.1) mg/dl Synovial Source HIP Synovial Color RED Synovial Appearance BLOODY Synovial WBC 1007 H (0-200) /ul Synovial RBC [id number] /uL Synovial Polynuclear % 68.4 % Synovial Mononuclear % 31.6 % Blood Type A Positive Antibody Screen NEGATIVE Crossmatch See Detail
[2020-08-30] MEDS: SENNA 8.6 MG TAB PO SCH (21:08)
[2020-08-30] MEDS: SIMVASTATIN 40 MG TAB PO SCH (21:08)
[2020-08-31] MEDS: CLINDAMYCIN 900 MG in DEXTROSE 5% 50 ML IV SCH ×2 (05:22→15:31)
[2020-08-31] MEDS: ACETAMINOPHEN 500 MG TAB PO SCH ×2 (05:25→13:47)
[2020-08-31 06:09] LABS: Basophils # (auto) 0.01 K/uL (0-0.2); Basophils % (auto) 0.1 %; Eosinophils # (auto) 0.02 K/uL (0-0.5); Eosinophils % (auto) 0.2 %; Hematocrit (blood only) 21.6 % (42-52); Hemoglobin 7.1 g/dL (14.0-18.0); Immature Granulocytes # (auto) 0.02 K/uL (0.00-0.02); Immature Granulocytes % (auto) 0.2 %; Lymphocytes % (auto) 14.6 %; Mean Corpuscular Hemoglobin 26.2 pg (25-34); Mean Corpuscular Hgb Conc 32.9 g/dL (32-36); Mean Corpuscular Volume 79.7 fL (80-100); Mean Platelet Volume 9.7 fL (7.4-10.4); Monocytes # (auto) 0.59 K/uL (0.11-0.59); Monocytes % (auto) 7.2 %; Neutrophils % (auto) 77.7 %; Platelet Count 135 K/uL (130-400); RDW Standard Deviation 58.5 fL (36.4-46.3); Red Blood Count 2.71 M/uL (4.7-6.1); White Blood Count 8.24 K/uL (4.8-10.8)
[2020-08-31 06:31] LABS: Ovalocytes 1+
[2020-08-31 06:49] LABS: BUN Creatinine Ratio 26.4 (10-20); Calcium 7.3 mg/dl (8.5-10.1); Creatinine Clr Calc Pharmacy 61.9 ml/min; Est GFR (African American) 76.3; Est GFR (Non-African American) 65.9; Potassium 4.4 mmol/L (3.5-5.1)
[2020-08-31] MEDS: MULTIVITAMIN TAB PO SCH (08:36)
[2020-08-31] MEDS: DOCUSATE SODIUM 100 MG CAP PO SCH (08:36)
[2020-08-31] MEDS: oxyCODONE HCL IR 5 MG TAB (IMMEDIATE RELEASE) PO PRN (08:38)
[2020-08-31] MEDS: ENOXAPARIN INJ 40 MG/0.4 ML SYR SQ SCH (08:40)
--- NOTE | 2020-08-31 08:53 | Orthopedic Progress Note ---
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, revision right DUNIA POD#2 -clinda x 48 -DVT ppx: SCDs, TEDs, Lovenox daily -WBAT RLE -PT/OT -PO XR demonstrates a well aligned well fixed prosthesis without fracture/disl ocation -am labs - as above, hgb 7.1, asymptomatic, acute post operative anemia due to surgical blood loss and dilutional effect, will transfuse 1 unit, recheck hgb and monitor -IO culture negative x 24h -HMV drain - 50/300cc, will DC -DC planning - home with POD#1 -clinda x 48 -DVT ppx: SCDs, TEDs, Lovenox daily -WBAT RLE -PT/OT -PO XR demonstrates a well aligned well fixed prosthesis without fracture/dislocation -am labs - as above, hgb 8.1 -IO culture negative x 24h -HMV drain - 75/220cc -DC planning Admission and Anticipated Discharge Date Admission Date: August 29, 2020 Subjective Post Operative Progress Note Patient seen sitting in chair at bedside, comfortable, denies complaints, pain well controlled, no acute issues. Denies F/C/N/V/SOB/CP. Review of Systems Review of Systems: All systems reviewed & are unremarkable except as noted in HPI & below Constitutional: as per Subjective / HPI Physical Exam Physical Exam: RLE NVSI +EHL/FHL/TA/GS SILT grossly, +2 DP pulse, compartments soft NT, dressing cdi. Constitutional: WD/WN, vitals as above Results & Data ([facility]) Vital Signs (Past 12 Hours) Vital Signs Temp Pulse Resp BP Pulse Ox 08/31/20 06:30 36.8 C 93 H 17 118/65 93 08/31/20 06:15 37.2 C 85 16 122/65 96 08/30/20 23:21 36.9 C 90 16 100/59 L 94 08/30/20 22:12 37.2 C 85 14 99/57 L 96 Laboratory Results 08/31/20 08/31/20 Range/Units 05:48 05:48 WBC 8.24 (4.8-10.8) K/uL RBC 2.71 L (4.7-6.1) M/uL Hgb 7.1 L (14.0-18.0) g/dL Hct 21.6 L (42-52) % MCV 79.7 L (80-100) fL MCH 26.2 (25-34) pg MCHC 32.9 (32-36) g/dL RDW Std Deviation 58.5 H (36.4-46.3) fL RDW Coeff of Lori 20.0 H (11.5-14.5) % Plt Count 135 (130-400) K/uL MPV 9.7 (7.4-10.4) fL Immature Gran % (Auto) 0.2 % Neut % (Auto) 77.7 % Lymph % (Auto) 14.6 % Valencia % (Auto) 7.2 % Eos % (Auto) 0.2 % Baso % (Auto) 0.1 % Neut # (Auto) 6.40 (1.4-6.5) K/uL Lymph # (Auto) 1.20 (1.2-3.4) K/uL Valencia # (Auto) 0.59 (0.11-0.59) K/uL Eos # (Auto) 0.02 (0-0.5) K/uL Baso # (Auto) 0.01 (0-0.2) K/uL Immature Gran # (Auto) 0.02 (0.00-0.02) K/uL Ovalocytes 1+ Sodium 138 (136-145) mmol/L Potassium 4.4 (3.5-5.1) mmol/L Chloride 108 H (98-107) mmol/L Carbon Dioxide 25 (21-32) mmol/L Anion Gap 5.0 (3-11) BUN 29 H (7-18) mg/dl Creatinine 1.08 (0.6-1.4) mg/dl Est Cr Clr Drug Dosing 61.9 ml/min Est GFR ( Amer) 76.3 Est GFR (Non-Af Amer) 65.9 BUN/Creatinine Ratio 26.4 H (10-20) Glucose 98 (70-99) mg/dl Calcium 7.3 L (8.5-10.1) mg/dl
[2020-08-31] MEDS ORDERED: SODIUM CHLORIDE 0.9% 250 ML IV PRN (10:57)
[2020-08-31 16:37] LABS: Hematocrit (blood only) 25.4 % (42-52); Hemoglobin 8.4 g/dL (14.0-18.0)
--- NOTE | 2020-08-31 21:14 | Discharge Summary ---
Date of Service August 31, 2020 Admission HPI Per Admitting Provider Patient is a 75-year-old male who presents for preoperative appointment for revision right total hip arthroplasty versus repeat I&D and revision antibiotic cement spacer scheduled for 08/29/2020. The patient has significant past surgical history and is status post explant right total hip and placement of antibiotic cement spacer and I&D performed 04/21/2020. Patient completed IV antibiotic course in 2-week antibiotic holiday, underwent arthrocentesis of his right hip on 06/20/2020. Unfortunately only a small amount of fluid was obtained and the patient could only have cultures performed which were negative. I discussed the lack of full set of labs and lack of inflammatory labs with the patient in detail. I reviewed x-rays of the right hip with marker ball which demonstrated a well aligned well fixed articulating antibiotic cement spacer without fracture dislocation. Patient has not been obtaining weekly lab draws due to lack of transportation he reports. Previous inflammatory labs were trending down. We will obtain new labs prior to surgery. Patient is ready to schedule revision right total hip arthroplasty. I explained to the patient in detail that the absence of the labs and inability to get a full set of labs for his right hip arthrocentesis, definitive revision right total hip arthroplasty will not be determined until intra-operative labs and frozen tissue samples are obtained. I have indicated the patient for revision right total hip arthroplasty and removal of antibiotic cement spacer versus revision right antibiotic cement spacer and I&D. Principal Diagnosis Revision right total hip replacement, removal of antibiotic cement spacer and I+D -Right hip periprosthetic joint infection Discharge Exam RLE NVSI +EHL/FHL/TA/GS SILT grossly, +2 DP pulse, compartments soft NT, dressing cdi. Constitutional WD/WN, vitals as above Discharge Data Allergies Allergy/AdvReac Type Severity Reaction Status Date / Time vancomycin Allergy Mild Rash Verified 08/29/20 12:38 Consultations 08/30/20 08:00 Consult Case Management - Discharge Planning Routine Procedures Performed Operation Date: 08/29/20 13:50 Actual Procedures p Right Total Hip Revision(Right) - Rene Arias DO s , Irrigation and Debridement(Right) - Rene Arias DO Hospital Course (1) Infection of prosthetic total hip joint: Hospital Course: On 08/29/20 the patient was taken to the operating room, adequate anesthesia administered and underwent a removal of right hip antibiotic cemenet spacer, I+D, revision right DUNIA. The patient tolerated the procedure well and was taken to the PACU in stable condition. Post-operatively the patient was started on a DVT ppx medication and given appropriate IV antibiotics. Consults were placed to physical therapy, occupational therapy and case management. On POD#1, the patient did well overnight and their pain was well controlled. Labs were drawn and the Hgb was 8.1. IO cultures negative. The patient progressed well with PT. Drain output 75/220cc. On POD#2, the patient continued to do well overnight, progressed with PT. Labs drawn, hgb 7.1, patient asymptomatic, transfused 1 unit of PRBC, repeat Hgb 8.4. Drain output 50/300cc, DC'd. IO cultures continued to be negative. The patients hospital stay was relatively uneventful and they were deemed stable by the orthopedic team and consultants to be discharged home with on 08/31/20. Discharge Instructions: Upon discharge the patient may weight bear as tolerates through their operative extremity. They were instructed to keep the incision clean and dry at all times. The patient may shower but should not submerge the incision, avoid bathing, pools and hot tubs. The patient was given a script for pain medication and should take as instructed. The patient was given a script for DVT ppx Lovenox 40mg daily and should take as directed. The patient was instructed to not drive or travel for long distances until cleared to do so. If the patient develops any symptoms of fevers, chills, nausea, vomiting, increased redness, swelling, pain or drainage from the surgical site, they should notify the office and/or proceed to the nearest emergency room. The patient should follow up in 10-14 days after surgery for their routine post-operative follow-up appointment and should call the office, to confirm the date and time. s/p explant abx spacer, revision right DUNIA POD#2 -clinda x 48 -DVT ppx: SCDs, TEDs, Lovenox daily -WBAT RLE -PT/OT -PO XR demonstrates a well aligned well fixed prosthesis without fracture/dislocation -am labs - as above, hgb 7.1, asymptomatic, acute post operative anemia due to surgical blood loss and dilutional effect, will transfuse 1 unit, recheck hgb and monitor -IO culture negative x 24h -HMV drain - 50/300cc, will DC -DC planning - home with POD#1 -clinda x 48 -DVT ppx: SCDs, TEDs, Lovenox daily -WBAT RLE -PT/OT -PO XR demonstrates a well aligned well fixed prosthesis without fracture/disl ocation -am labs - as above, hgb 8.1 -IO culture negative x 24h -HMV drain - 75/220cc -DC planning Total Time Total Time Spent Total Time Spent (In Minutes): 45 Discharge Plan Discharge Items Patient Disposition: Home - Home Health Services Reason For Visit: Infection and Inflammatory Reaction Discharge Diagnosis: Revision right total hip replacement -Right hip periprosthetic joint infection Condition on Discharge: Good Activity: Per Instructions section Lifting: Wait until after follow-up appointment Bathing: Keep incision dry Bathing Comment: No bathing, pools or hot tubs. Sexual Activity: Wait until after follow-up appointment Exercise/Sports: Wait until after follow-up appointment Driving/Machine Use: No driving. Weightbearing: Full weightbearing Non-emergency contact: Primary Care Provider and Surgeon Call non-emergency contact if: you have any medication questions, your symptoms worsen, your pain is not controlled, your pain is worsening, your pain is unusual for you, your pain is concerning for you, you have a fever, your temperature is above 101, your wound has increased redness, your wound has increased drainage and your wound pain has increased Follow-up/Referrals: Artemio Choi [Primary Care Provider] - Diet: Regular Ambulatory Orders: Hemoglobin and Hematocrit (Routine) Timeframe: 2 Days Location: Determined by Patient Ordered By: Jhonathan Shaw Attending Provider Instructions: ACTIVITY RECOMMENDATIONS: SELF CARE INSTRUCTIONS AFTER TOTAL HIP REPLACEMENT Until the incision and soft tissues around your hip have healed, there is a possibility that the hip prosthesis could dislocate. A. Observe the following precautions to prevent dislocation: 1. Don't bend your hip greater than 90 degrees. 2. Avoid crossing your legs or ankles while standing or lying. 3. Sit with your feet placed 6 inches apart. 4. When sitting, keep your knees below your hips. Sit on a firm surface, avoid deep, soft chairs and couches. Use an elevated toilet seat in the bathroom. 5. Don't bend over at the waist. Use a long handled shoehorn and a sock aid to help you put on your shoes and socks. A fund controller can help you continuous pickling line pickler helper objects that are too high or too low to reach. 6. Keep car riding to a minimum for at least one month after surgery. B. Your balance may be shaky for a while. Use crutches or a walker until directed by your doctor. C. Use hand rails when walking on stairs. D. Wear low heeled shoes with non-slip soles. E. Be sure that your floors are free of things that could trip you - throw rugs, electrical cords, small objects. Avoid wet and waxed floors, especially with crutches and canes. F. Try to walk several times a day with rest periods between. G. Continue with all the exercises taught to you in the hospital. Again, make walking a part of your daily routine. SPECIAL CARE INSTRUCTIONS: VERY IMPORTANT TO READ AND REVIEW A. You may still be at risk for phlebitis and blood clots. 1. Wear surgical stockings (SWETA hose) for 2 weeks after surgery to improve circulation and reduce swelling. 2. Take Lovenox 40mg daily for 4 weeks or as directed by your doctor. This is your blood thinner. 3. High risk patients may be prescribed a stronger blood thinner if necessary. 4. If you are on Coumadin normally, your family doctor/commercial floor covering installer should monitor your blood work. Expect a phone call the day of or the day after bloodwork is drawn to adjust your dosage. B. You must take antibiotics before having dental work, bladder, bowel and other surgery. Your doctor will provide you with a permanent card to carry d escribing precautions. C. Call [facility] if you have a fever, redness or swelling around the incision, cloudy drainage from incision, or sudden increase in pain in your hip, not relieved by your regular pain medication. D. Please call the office at if you have any concerns or qu estions about your operation or recovery. * YOU MAY SHOWER, NO TUB BATHS UNTIL CLEARED BY YOUR DOCTOR. * WEAR SWETA HOSE 20 HOURS PER DAY FOR 2 WEEKS. * YOU SHOULD USE A WALKER OR CRUTCHES FOR 2-4 WEEKS. THIS WILL HELP PREVENT STRAIN ON YOUR HIP MUSCLE AND ALLOW IT TO HEAL PROPERLY. YOU MAY WEAN TO A CANE TOLERATED. * MOST PATIENTS WILL HAVE HOME NURSING FOR THERAPY. IF YOU DECIDE TO DO OUTPATIENT PHYSICAL THERAPY, PLEASE SCHEDULE THIS 3 TIMES PER WEEK. * YOU MAY HAVE A LARGE, BAND-ISRA LIKE DRESSING (SILVERON). THIS WILL REMAIN ON YOUR INCISION FOR 7 DAYS, THEN CAN BE REMOVED. IF INCISION IS LEAKING THROUGH DRESSING, PLEASE CALL THE OFFICE . FOLLOW UP VISIT: If appointment is not already scheduled: Please call [facility] to make a follow-up appointment for 2 weeks after your surgery at . Pending Studies at Discharge: No Stand-Alone Forms: My [facility] [employer], Opioid Pain Management, Smoking Cessation Medications and DC Order Prescriptions: New enoxaparin 40 mg/0.4 mL Syringe 40 mg subcut Q24H Qty: 28 RF: 0 acetaminophen 500 mg Tablet 1,000 mg PO Q8 PRN (Reason: pain/fevers) Qty: 90 RF: 0 oxycodone 5 mg Tablet 5 mg PO Q6H MDD 4 PRN (Reason: pain) Qty: 30 RF: 0 sennosides [Senokot] 8.6 mg Tablet 17.2 mg PO HS PRN (Reason: constipation) Qty: 28 RF: 0 cefadroxil 500 mg capsule 500 mg PO BID Qty: 56 RF: 0 Continued simvastatin 40 mg Tablet 40 mg PO PM RF: 0 Discontinued oxycodone 5 mg Tablet 5 mg PO Q6 MDD 4 PRN (Reason: pain) Qty: 30 RF: 0 Discharge Orders: Discharge Order (Routine); Ordered 08/31/20 Ordered By: Rene Munoz/Other Patient Handouts: DVT Post Op Prevention, Enoxaparin injection Admission Data Admit Date/Time: 08/29/20 18:06 Attending Provider: Rene Arias Admit Provider: Rene Arias Primary Care Provider: Artemio Choi Other Interventions: Discharge Summary Assessment (RN) Last Done: 08/31/20 16:50
== END 2020-08-31 18:21 | disposition home health service (06) ==
LOC: ASU 11:38 → 3E 11:38
PROC: M.IDHIP (2020-08-29 13:50)
DX: Z79.899 Other long term (current) drug therapy; I44.7 Left bundle-branch block, unspecified; E78.5 Hyperlipidemia, unspecified; K21.9 Gastro-esophageal reflux disease without esophagitis; T84.51XA Infection and inflammatory reaction due to internal right hip prosthesis, initial encounter; Z88.1 Allergy status to other antibiotic agents; Y83.1 Surgical operation with implant of artificial internal device as the cause of abnormal reaction of the patient, or of later complication, without mention of misadventure at the time of the procedure